=== PATIENT | female | born 1980 | race Caucasian/White ===

== ENCOUNTER → 2018-02-02 13:16 | Emergency (ER) | payer BC, OTHER ==
[~2018-02-02 13:16] MED LIST: Iohexol 300* (CONTRAST) 10 ML SDV IV ONE; Morphine VIAL* 4 MG/ML VIAL (1 ml vial) IV ONE; NS 0.9% 1000 ML* 1,000 ML IV ONE; Ondansetron INJ* 2 MG/ML VIAL IV ONE; Pantoprazole IV* 40 MG IV ONE
[2018-02-02] MEDS: Morphine VIAL* 4 MG/ML VIAL (1 ml vial) IV ONE ×2 (16:25→16:50)
[2018-02-02 16:30] LABS: ABS Basophils 0 10^3/ul (0-0.2); ABS Eosinophils 0.1 10^3/ul (0-0.6); ABS Lymphocytes 0.5 10^3/ul (1.0-4.8); ABS Monocytes 0.7 10^3/ul (0-0.8); ABS Neutrophils 10.1 10^3/ul (1.5-7.7); ABS Nucleated RBC 0 10^3/ul; Eosinophil % 0.5 % (0-6); Hematocrit 43 % (35-47); Hemoglobin 14.5 g/dl (12.0-16.0); Lymphocyte % 4.2 % (25-47); Mean Corpuscular HGB Conc 34 g/dl (31-36); Mean Corpuscular Hemoglobin 31 pg (27-31); Mean Corpuscular Volume 91 fL (80-97); Mean Platelet Volume 7.6 um3 (7.4-10.4); Nucleated Red Blood Cells % 0; Platelet Count 249 10^3/ul (150-450); Red Blood Count 4.73 10^6/ul (4.0-5.4); Red Cell Distribution Width 13 % (10.5-15); White Blood Count 11.3 10^3/ul (3.5-10.8)
[2018-02-02 16:55] LABS: EGFR Non-African American 87.4 (>60)
--- NOTE | 2018-02-02 17:21 | RAD ---
Indication: Nausea, abdominal pain. Comparison: September 04, 2017 Technique: Upright PA chest 1710 hours Report: Clear lungs and pleural spaces. Negative for pneumothorax. Cardiac event monitor at the LEFT chest. The heart, pulmonary vasculature, and mediastinal contours are unremarkable. Negative for free air beneath the diaphragm. Gallbladder fossa level surgical clips. Unremarkable osseous structures and soft tissue contours. IMPRESSION: No evidence for acute intrathoracic disease.
--- NOTE | 2018-02-02 17:26 | RAD ---
Indication: Abdominal pain, nausea. Severe gastroparesis. Comparison: Chest radiograph the same date. Technique: Supine and upright views of the abdomen. Report: No radiographic evidence for free air. Significant gastric distention and gastric air-fluid level. Resulting downward displacement of the transverse colon. Negative for dilated small or large bowel loops. Moderate volume of formed stool at the sigmoid colon and rectum. Surgical clips at the gallbladder fossa. IUD at the midline pelvis. No suspicious calcifications. Unremarkable soft tissue contours. IMPRESSION: Corresponding with history of severe gastroparesis there is significant gastric distention.
--- NOTE | 2018-02-02 18:26 | RAD ---
INDICATION: Abdominal pain and nausea. Gastroparesis. COMPARISON: Abdomen radiograph of the same date. TECHNIQUE: Multidetector CT images were obtained from the lung bases to the ischial tuberosities with 72 mL Omnipaque 300 IV and oral contrast. Multiplanar reformation. REPORT: Unremarkable visualized inferior thorax. Post cholecystectomy. Upper normal intrarenal extrahepatic bile ducts as is typically seen post cholecystectomy. No suspicious finding along the course of the common bile duct. Upper normal 18 cm cephalocaudal liver. No suspicious focal hepatic lesions. Unremarkable pancreas and spleen. Moderate gastric distention with food stuff and enteric contrast. No suggestion of gastric wall thickening or focal gastric lesion. No CT abnormality of the small bowel loops. While the appendix is not discretely visualized, there is no inflammatory change in the right lower quadrant or region of the tip of the cecum to suggest presence of an acute inflammatory process. Physiologic small volume of free pelvic fluid. Negative for free air. Negative for hernias. Normal adrenal glands. Unremarkable kidneys with symmetric nephrograms and pyelograms. Unremarkable nondilated ureters and bladder. Anteverted uterus with IUD in place. Unremarkable adnexal regions. Negative for lymphadenopathy. Normal diameter abdominal aorta and iliac arteries. Physiologic distention of the IVC. Negative for suspicious osseous lesions. IMPRESSION: 1. Decreased magnitude of gastric distention compared with the abdomen radiograph the same date. Negative for bowel obstruction. 2. Post cholecystectomy likely accounting for top normal size of the intra and extrahepatic bile ducts. 3. While the appendix is not discretely visualized, there is no inflammatory change in the right lower quadrant or region of the tip of the cecum to suggest presence of an acute inflammatory process. 4. Physiologic small volume of free fluid at the pelvis. 5. Negative for lymphadenopathy.
[2018-02-02 20:30] VITALS: BP 93/55
--- NOTE | 2018-02-03 12:01 | ED ---
Mayda Javier Edward, scribed for Tres Jonas MD on 02/02/18 at 1605 . Abdominal Pain/Female - HPI Summary HPI Summary: 37 y/o female presents to the ED c/o sudden onset, severe nausea and ABD pain at 04:00 this morning, waking the pt up at night. Pain located mostly in the epigastric region and moves around the ABD. Pain aggravated with movement, nausea aggravated with food. Pt has had intermittent ABD pain for the past couple of weeks. PMHx gastroperesis, endometriosis. Sx ovarian cyst removal, gallbladder removal, . Last BM last night at around 05:00 (regular). - History of Current Complaint Chief Complaint: EDAbdPain Stated Complaint: NAUSEA,ABD PAIN Time Seen by Provider: 02/02/18 15:47 Hx Obtained From: Patient Onset/Duration: Sudden Onset Timing: Constant Pain Intensity: 6 Location: Suprapubic Radiates: Yes Radiates to: Other - moves around ABD Aggravating Factor(s): Food, Movement Alleviating Factor(s): Nothing Associated Signs and Symptoms: Positive: Nausea Allergies/Adverse Reactions: Allergies Allergy/AdvReac Type Severity Reaction Status Date / Time ceftazidime Allergy Severe Anaphylatic Verified 02/02/18 13:26 Shock ephedrine Allergy Severe Palpitation Verified 02/02/18 13:26 s metoclopramide [From Reglan] Allergy Severe Rash Verified 02/02/18 13:26 prochlorperazine Allergy Severe Anxiety Verified 02/02/18 13:26 [From Compazine] pseudoephedrine Allergy Severe Palpitation Verified 02/02/18 13:26 s Sulfa (Sulfonamide Allergy Severe Numbness Verified 02/02/18 13:26 Antibiotics) And Tingling tramadol [From Ultram] Allergy Severe Anxiety Verified 02/02/18 13:26 PMH/Surg Hx/FS Hx/Imm Hx Previously Healthy: No Cardiovascular History: Reports: Other Cardiovascular Problems/Disorders - VENTRICULAR TACHYCARDIA. LOOP RECORDER. GI History: Reports: Other GI Disorders - Gastroparesis, endometriosis Musculoskeletal History: Reports: Hx Scoliosis Neurological History: Reports: Hx Headaches - MIGRAINS, Other Neuro Impairments/ Disorders - ANKYLOSIS SPOND - Surgical History Surgery Procedure, Year, and Place: Ovarian cyst removal, gallbladder removal, C -section Infectious Disease History: No Infectious Disease History: Denies: Traveled Outside the [place] in Last 30 Days - Family History Known Family History: Positive: Unknown - Social History Occupation: Unemployed Lives: With Family Review of Systems Constitutional: Negative Eyes: Negative ENT: Negative Cardiovascular: Negative Respiratory: Negative Positive: Abdominal Pain, Nausea Genitourinary: Negative Musculoskeletal: Negative Skin: Negative Neurological: Negative Psychological: Normal All Other Systems Reviewed And Are Negative: Yes Physical Exam - Summary Physical Exam Summary: GENERAL: ~Patient is a well developed and nourished F who is lying comfortable in the stretcher. ~Patient is not in any acute respiratory distress. HEAD AND FACE: Normocephalic EYES: PERRLA, EOMI x 2. EARS: Hearing grossly intact. MOUTH: Oropharynx within normal limits. NECK: Supple, trachea is midline, no adenopathy, no JVD, no carotid bruit. CHEST: Symmetric, no tenderness at palpation LUNGS: Clear to auscultation bilaterally. No wheezing or crackles. CVS: Regular rate and rhythm, S1 and S2 present, no murmurs or gallops appreciated. ABDOMEN: Soft, tender @ epigastric region. No rebound, no guarding. Bowel sounds are normal. No abdominal abnormal pulsations. EXTREMITIES: Full ROM in all major joints, no edema, no cyanosis or clubbing. NEURO: Alert and oriented x 3. No acute neurological deficits. Speech is normal and follows commands. SKIN: Dry and warm Triage Information Reviewed: Yes Vital Signs On Initial Exam: Initial Vitals Temp Pulse Resp BP Pulse Ox 99.3 F 103 16 104/69 98 02/02/18 13:20 02/02/18 13:20 02/02/18 13:20 02/02/18 13:20 02/02/18 13:20 Vital Signs Reviewed: Yes Diagnostics - Vital Signs Vital Signs Temp Pulse Resp BP Pulse Ox 02/02/18 13:20 99.3 F 103 16 104/69 98 - Laboratory Lab Results: Lab Results 02/02/18 02/02/18 02/02/18 Range/Units 16:16 16:16 16:16 WBC 11.3 H (3.5-10.8) 10^3/ul RBC 4.73 (4.0-5.4) 10^6/ul Hgb 14.5 (12.0-16.0) g/dl Hct 43 (35-47) % MCV 91 (80-97) fL MCH 31 (27-31) pg MCHC 34 (31-36) g/dl RDW 13 (10.5-15) % Plt Count 249 (150-450) 10^3/ul MPV 7.6 (7.4-10.4) um3 Neut % (Auto) 89.2 H (38-83) % Lymph % (Auto) 4.2 L (25-47) % White % (Auto) 6.0 (0-7) % Eos % (Auto) 0.5 (0-6) % Baso % (Auto) 0.1 (0-2) % Absolute Neuts (auto) 10.1 H (1.5-7.7) 10^3/ul Absolute Lymphs (auto) 0.5 L (1.0-4.8) 10^3/ul Absolute Monos (auto) 0.7 (0-0.8) 10^3/ul Absolute Eos (auto) 0.1 (0-0.6) 10^3/ul Absolute Basos (auto) 0 (0-0.2) 10^3/ul Absolute Nucleated RBC 0 10^3/ul Nucleated RBC % 0 Sodium 134 L (139-145) mmol/L Potassium 3.9 (3.5-5.0) mmol/L Chloride 104 (101-111) mmol/L Carbon Dioxide 21 L (22-32) mmol/L Anion Gap 9 (2-11) mmol/L BUN 13 (6-24) mg/dL Creatinine 0.74 (0.51-0.95) mg/dL Est GFR ( Amer) 112.4 (>60) Est GFR (Non-Af Amer) 87.4 (>60) BUN/Creatinine Ratio 17.6 (8-20) Glucose 94 (70-100) mg/dL Lactic Acid 0.7 (0.5-2.0) mmol/L Calcium 9.1 (8.6-10.3) mg/dL Magnesium 2.1 (1.9-2.7) mg/dL Total Bilirubin 0.90 (0.2-1.0) mg/dL AST 21 (13-39) U/L ALT 22 (7-52) U/L Alkaline Phosphatase 47 (34-104) U/L Total Protein 7.8 (6.4-8.9) g/dL Albumin 4.5 (3.2-5.2) g/dL Globulin 3.3 (2-4) g/dL Albumin/Globulin Ratio 1.4 (1-3) Lipase 17 (11.0-82.0) U/L Beta HCG, Quant < 0.60 mIU/mL Result Diagrams: 02/02/18 16:16 02/02/18 16:16 Lab Statement: Any lab studies that have been ordered have been reviewed, and results considered in the medical decision making process. - Radiology CXR Xray Interpretation: No Acute Changes - No evidence for acute intrathoracic disease Radiology Interpretation Completed By: Radiologist ABD XR Xray Interpretation: No Acute Changes - Corresponding with history of severe gastroparesis there is significant gastric distention. Radiology Interpretation Completed By: Radiologist - CT ABD/PEL CT CT Interpretation: No Acute Changes - 1. Decreased magnitude of gastric distention compared with the abdomen radiograph the same date. Negative for bowel obstruction. 2. Post cholecystectomy likely accounting for top normal size of the intra and extrahepatic bile ducts. 3. While the appendix is not discretely visualized, there is no inflammatory change in the right lower quadrant or region of the tip of the cecum to suggest presence of an acute inflammatory process. 4. Physiologic small volume of free fluid at the pelvis. 5. Negative for lymphadenopathy. CT Interpretation Completed By: Radiologist Re-Evaluation - Re-Evaluation 1 Re-Evaluation Time: 16:41 Change: Worse Comment: Pt in severe ABD pain immediately after the pt drank contrast. Pt c/o L shoulder pain 2 Re-Evaluation Time: 18:36 Comment: discuss results, plan of care Abdominal Pain Fem Course/Dx - Course Course Of Treatment: 37 y/o female history gastroparesis and erosive gastritis. Presents to ED with worsening ABd pain. Workup remarkable for Mild leukocytosis white count 11.3. CT shows much improvement of distended stomach seen in previous studies. CXR normal. PT will be given protonix and sent home. Instructed to f/u with GI. - Diagnoses Provider Diagnoses: Epigastric pain Discharge - Sign-Out/Discharge Documenting (check all that apply): Discharge/Admit/Transfer - Discharge Plan Condition: Stable Disposition: HOME Prescriptions: Pantoprazole TAB (NF) [Protonix TAB (NF)] 20 mg PO DAILY 30 Days #30 tab Patient Education Materials: Gastritis (ED), Gastroesophageal Reflux Disease ( ED), Epigastric Pain (ED) Referrals: Endy Johnston MD [Medical Doctor] - 4 Days (PLEASE F/U IN 3-5 DAYS) Additional Instructions: RETURN FOR CHANGING/WORSENING SYMPTOMS - Billing Disposition and Condition Condition: STABLE Disposition: HOME The documentation as recorded by the aMyda lozano Edward accurately reflects the service I personally performed and the decisions made by , Tres Jonas MD.
== END | disposition home or self-care (01) ==
LOC: ED 13:16
DX: R10.13 Epigastric pain (principal); I47.2 Ventricular tachycardia; K31.89 Other diseases of stomach and duodenum
CPT/HCPCS: 36415; 71045; 74019; 74177; 80053; 83605; 83690; 83735; 84702; 85025; 96360; 96374; 96375; 99283; J2270; J2405; Q9967

== ENCOUNTER 2018-04-25 12:42 | Emergency (ER) | payer BC ==
--- OUTSIDE RECORDS SUMMARY | 2018-04-25 12:48 | XMS REPORT ---
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 PayID: [id number] [place] [address] Medigap Part B Effective: Policy Number: [employer] Zenaida Zavala 10/07/2017 [id number] [facility] Name: [employer] 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 Cigarette Use Never Smoked Cigarettes ETOH Use Denies alcohol use Recreational Drug Use Denies Drug Use Smoking Patient has never smoked Enjoy Exercising Enjoys exercising Allergies, Adverse Reactions, Alerts Date Description Reaction Status Severity Comments 08/03/2016 Sulfa numbness and tingling active 08/03/2016 Ultram withdrawl sx active 08/03/2016 Compazine painic attack active 08/03/2016 Reglan rash active 08/03/2016 Ephedrine heart palpitations active 08/03/2016 Sudafed heart palpitation active 08/03/2016 Ceftazidime rash and itchy throat active 01/11/2017 Adhesives active Medications Medication Date Status Form Strength Qnty SIG Indications Ordering Provider Fluticasone 03/25/ Active Suspension 50mcg/Act 16gm 2 sprays J01.90 Julio Propionate 2017 into each [place] nostril III, once daily [employer] Azithromycin 03/25/ Active Tablets 250mg 6tabs take 2 tab J01.90 Julio 2018 by mouth on [place] day 1 III, followed by [employer] 1 tab by mouth daily for 4 additional days Benadryl 02/03/ Active take before Susan 2018 infusion MICHAEL Minor Prednisone 02/03/ Active take before [facility] 2017 infusion MICHAEL Minor Amitriptyline 07/18/ Active Tablets 10mg 30tab 1 tab by G43.101 Alen HCL 2017 s mouth every [place] night , Ondansetron 11/16/ Active Tablets 4mg 30tab dissolve 1 Manuela 2016 Dispers s tab by traci Cortez three [employer]-C times a day as needed nausea Mirena (52 MG) 08/03/ Active IUD 20mcg/24H inserted Manuela 2015 R 09/20 JOSEFINA Cortez-C Remicade / Active Infusions Every 6 Unknown 0000 weeks Tylenol 8 Hour / Active Tablets ER 650mg 1 by mouth Unknown Arthritis Pain 0000 as needed Ketorolac / Active Tablets 10mg 20tab take one Alen Tromethamine 0000 s tablet by [place] mouth every , 4 to 6 hours; no more than four tablets per day Azithromycin 12/16/ Hx Tablets 250mg 6tabs 2 tabs J01.90 [facility] 2017 - today. 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 Benzonatate 08/06/ Hx Capsules 100mg 60cap 1-2 R05 Julio 2016 - s capsules by [place] 02/03/ mouth every III, 2018 8 hours as [employer]-C needed for cough. Rizatriptan 07/18/ Hx Tablets 5mg 14tab 1 tab by G43.101 Alen Benzoate 2016 - s mouth as [place] 02/03/ needed at , 2018 onset of migraine symptoms. can take another 2 hours later if needed. Azithromycin 03/12/ Hx Tablets 250mg 6tabs take 2 tab J06.9 Julio 2017 - by mouth on [place] 07/24/ day 1 III, 2016 followed by [employer]-C 1 tab by mouth daily for 4 additional days Lexapro 02/15/ Hx Tablets 10mg 30tab 1/2 tablet F41.9 Manuela 2017 - s by mouth x Dana, 02/20/ days then [employer]-C 2017 increase to 1 tab po daily Azithromycin 09/28/ Hx Tablets 250mg 6tabs take 2 J01.90 Alen 2016 - tablets by [place] 11/16/ mouth MD raina 2017 time then take one daily for 4 days. Wait until patient calls to fill. Flonase Allergy 09/28/ Hx Suspension 50mcg/Act 1unit 1 puff J01.90 Alen Relief 2016 - s intranasal [place] 03/12/ puff MD jolene 2017 every morning in each nostril Estradiol 08/20/ Hx Tablets 2mg 90tab 1 tab po qd Manuela 2015 - s Dana, 02/03/ [employer] 2017 Estradiol 14/ Hx Tablets 1mg 90tab 1 tab po qd Manuela 2015 - s Dana, 02/03/ [employer] 2017 Clindamycin 08/20/ Hx Gel 1% 60uni apply a N64.9 Manuela Phosphate 2016 - ts thin film Dana, 01/11/ to affected [facility] 2017 area once or twice daily Estradiol / Hx Tablets 3mg 30tab 1 by mouth Unknown 0000 - s every day 2015 Prednisone 00/ Hx Tablets 10mg Unknown 0000 - 2017 Medications Administered in Office Medication Date Status Form Strength Qnty SIG Indications Ordering Provider Injection Administered Injection Alen KetorolHerminio Flores MD Per 15 MG (Toradol) Immunizations CPT Code Status Date Vaccine Lot # [id number] Given 09/04/2017 Influenza Virus Vaccine, Quadrivalent, 3 Yr > [id number] Quad, Preserv Free [id number] Given 10/12/2016 Influenza Virus Vaccine, Quadrivalent, 3 Yr > [id number] Quad, Preserv Free Vital Signs Date Vital Result Comment 04/10/2018 Weight 123.00 lb Weight in kg's 55.793 BP Systolic 98 mmHg BP Diastolic 68 mmHg Heart Rate 81 /min Body Temperature 99.5 F Respiratory Rate 18 /min O2 % BldC Oximetry 98 % 03/25/2018 Weight 123.00 lb Weight in kg's 55.793 BP Systolic 114 mmHg BP Diastolic 70 mmHg Heart Rate 78 /min Body Temperature 99.0 F Respiratory Rate 18 /min O2 % BldC Oximetry 99 % 02/03/2018 Weight 122.00 lb Weight in kg's 55.339 BP Systolic 102 mmHg BP Diastolic 58 mmHg Heart Rate 87 /min Body Temperature 97.1 F Respiratory Rate 16 /min Height 67 inches 5'7" BMI (Body Mass Index) 19.1 kg/m2 O2 % BldC Oximetry 98 % 12/16/2017 Weight 125.00 lb Weight in kg's 56.700 BP Systolic 104 mmHg BP Diastolic 68 mmHg Heart Rate 84 /min Body Temperature 98.1 F Respiratory Rate 16 /min O2 % BldC Oximetry 99 % 12/12/2017 Weight 121.00 lb Weight in kg's 54.886 BP Systolic 102 mmHg BP Diastolic 70 mmHg Heart Rate 88 /min Body Temperature 98.9 F Respiratory Rate 16 /min O2 % BldC Oximetry 98 % 09/04/2017 Weight 122.00 lb Weight in kg's 55.339 BP Systolic 90 mmHg BP Diastolic 60 mmHg Heart Rate 88 /min Body Temperature 97.7 F Respiratory Rate 14 /min O2 % BldC Oximetry 98 % 08/06/2017 Weight 125.00 lb Weight in kg's 56.700 BP Systolic 90 mmHg BP Diastolic 60 mmHg Heart Rate 92 /min Body Temperature 98.0 F Respiratory Rate 20 /min O2 % BldC Oximetry 98 % 07/24/2017 Weight 120.00 lb Weight in kg's 54.432 BP Systolic 90 mmHg BP Diastolic 60 mmHg Heart Rate 80 /min Body Temperature 98.7 F Respiratory Rate 16 /min 07/18/2017 Weight 124.00 lb Weight in kg's 56.246 BP Systolic 110 mmHg BP Diastolic 70 mmHg Heart Rate 68 /min Body Temperature 98.5 F 03/12/2017 Weight 117.00 lb Weight in kg's 53.071 BP Systolic 110 mmHg BP Diastolic 70 mmHg Heart Rate 92 /min Body Temperature 98.5 F Respiratory Rate 20 /min O2 % BldC Oximetry 99 % 02/15/2017 Weight 121.00 lb Weight in kg's 54.886 BP Systolic 94 mmHg BP Diastolic 56 mmHg Heart Rate 74 /min Body Temperature 98.8 F Respiratory Rate 14 /min O2 % BldC Oximetry 99 % 01/11/2017 Weight 120.00 lb Weight in kg's 54.432 BP Systolic 92 mmHg BP Diastolic 58 mmHg Heart Rate 89 /min Body Temperature 97.0 F Respiratory Rate 16 /min O2 % BldC Oximetry 98 % 11/16/2016 Weight 123.00 lb Weight in kg's 55.793 BP Systolic 90 mmHg BP Diastolic 60 mmHg Heart Rate 56 /min Body Temperature 98.9 F Respiratory Rate 12 /min 10/19/2016 Weight 122.00 lb Weight in kg's 55.339 BP Systolic 100 mmHg BP Diastolic 64 mmHg Heart Rate 84 /min Body Temperature 98.5 F Respiratory Rate 12 /min 09/28/2016 Weight 123.00 lb Weight in kg's 55.793 BP Systolic 100 mmHg BP Diastolic 69 mmHg Heart Rate 114 /min Body Temperature 99.3 F O2 % BldC Oximetry 98 % 08/20/2016 Weight 121.00 lb Weight in kg's 54.886 BP Systolic 94 mmHg BP Diastolic 58 mmHg Heart Rate 80 /min Body Temperature 98.8 F Respiratory Rate 12 /min 08/03/2016 Weight 121.00 lb Weight in kg's 54.886 BP Systolic 90 mmHg BP Diastolic 60 mmHg Heart Rate 72 /min Body Temperature 98.1 F Respiratory Rate 12 /min Height 66.5 inches 5'6.50" BMI (Body Mass Index) 19.2 kg/m2 Results Test Date Test Result H/L Range Note CBC Auto Diff 02/02/2018 White Blood Count 11.3 10^3/uL High 3.5-10.8 Red Blood Count 4.73 10^6/uL 4.0-5.4 Hemoglobin 14.5 g/dL 12.0-16.0 Hematocrit 43 % 35-47 Mean Corpuscular Volume 91 fL 80-97 Mean Corpuscular Hemoglobin 31 pg 27-31 Mean Corpuscular HGB Conc 34 g/dL 31-36 Red Cell Distribution Width 13 % 10.5-15 Platelet Count 249 10^3/uL 150-450 Mean Platelet Volume 7.6 um3 7.4-10.4 Abs Neutrophils 10.1 10^3/uL High 1.5-7.7 Abs Lymphocytes 0.5 10^3/uL Low 1.0-4.8 Abs Monocytes 0.7 10^3/uL 0-0.8 Abs Eosinophils 0.1 10^3/uL 0-0.6 Abs Basophils 0 10^3/uL 0-0.2 Abs Nucleated RBC 0 10^3/uL Granulocyte % 89.2 % High 38-83 Lymphocyte % 4.2 % Low 25-47 Monocyte % 6.0 % 0-7 Eosinophil % 0.5 % 0-6 Basophil % 0.1 % 0-2 Nucleated Red Blood Cells % 0 Laboratory test finding 02/02/2018 Lactic Acid 0.7 mmol/L 0.5-2.0 1 HCG < 0.60 mIU/mL 2 Laboratory test finding 02/02/2018 Magnesium 2.1 mg/dL 1.9-2.7 Lipase 17 U/L 11.0-82.0 Comp Metabolic Panel 02/02/2018 Sodium 134 mmol/L Low 139-145 Potassium 3.9 mmol/L 3.5-5.0 Chloride 104 mmol/L 101-111 Co2 Carbon Dioxide 21 mmol/L Low 22-32 Anion Gap 9 mmol/L 2-11 Glucose 94 mg/dL 70-100 Blood Urea Nitrogen 13 mg/dL 6-24 Creatinine 0.74 mg/dL 0.51-0.95 BUN/Creatinine Ratio 17.6 8-20 Calcium 9.1 mg/dL 8.6-10.3 Total Protein 7.8 g/dL 6.4-8.9 Albumin 4.5 g/dL 3.2-5.2 Globulin 3.3 g/dL 2-4 Albumin/Globulin Ratio 1.4 1-3 Total Bilirubin 0.90 mg/dL 0.2-1.0 Alkaline Phosphatase 47 U/L 34-104 Alt 22 U/L 7-52 Ast 21 U/L 13-39 Egfr Non- 87.4 >60 Egfr 112.4 >60 3 Laboratory test finding 12/12/2017 Strep PCR neg CBC Auto Diff 11/16/2016 White Blood Count 10.3 10^3/uL 3.5-10.8 Red Blood Count 4.58 10^6/uL 4.0-5.4 Hemoglobin 13.7 g/dL 12.0-16.0 Hematocrit 41 % 35-47 Mean Corpuscular Volume 90 fL 80-97 Mean Corpuscular Hemoglobin 30 pg 27-31 Mean Corpuscular HGB Conc 33 g/dL 31-36 Red Cell Distribution Width 13 % 10.5-15 Platelet Count 310 10^3/uL 150-450 Mean Platelet Volume 9 um3 7.4-10.4 Abs Neutrophils 6.3 10^3/uL 1.5-7.7 Abs Lymphocytes 3.2 10^3/uL 1.0-4.8 Abs Monocytes 0.7 10^3/uL 0-0.8 Abs Eosinophils 0.1 10^3/uL 0-0.6 Abs Basophils 0.1 10^3/uL 0-0.2 Abs Nucleated RBC 0 10^3/uL Granulocyte % 60.9 % 38-83 Lymphocyte % 30.7 % 25-47 Monocyte % 7.2 % 1-9 Eosinophil % 0.6 % 0-6 Basophil % 0.6 % 0-2 Nucleated Red Blood Cells % 0 Laboratory test finding 11/16/2016 Magnesium 2.2 mg/dL 1.9-2.7 4 Comp Metabolic Panel 11/16/2016 Sodium 135 mmol/L 133-145 Potassium 4.3 mmol/L 3.5-5.0 Chloride 102 mmol/L 101-111 Co2 Carbon Dioxide 24 mmol/L 22-32 Anion Gap 9 mmol/L 2-11 Glucose 86 mg/dL 70-100 Blood Urea Nitrogen 11 mg/dL 6-24 Creatinine 0.73 mg/dL 0.51-0.95 BUN/Creatinine Ratio 15.1 8-20 Calcium 9.6 mg/dL 8.6-10.3 Total Protein 7.8 g/dL 6.4-8.9 Albumin 4.7 g/dL 3.2-5.2 Globulin 3.1 g/dL 2-4 Albumin/Globulin Ratio 1.5 1-3 Total Bilirubin 0.60 mg/dL 0.2-1.0 Alkaline Phosphatase 53 U/L 34-104 Alt 71 U/L High 7-52 Ast 37 U/L 13-39 Egfr Non- 89.2 >60 Egfr 114.7 >60 5 Laboratory test finding 10/19/2016 HCG DIP Test NEG Neg Urine DIP 10/19/2016 Leukocytes NEG Neg Urine Nitrites NEG Neg Urobilinogen NORM Norm Total Protein, Urine TRACE Neg Urine pH 8 High 5-6 Urine Blood NEG Neg Specific [place] 1.01 1.01-1.02 Urine Ketones NEG Neg Urine Bilirubin NEG Neg Urine Glucose NORM Norm Laboratory test finding 08/20/2016 TSH (Thyroid Stim Horm) 0.84 mcIU/mL 0.34-5.60 6 Vitamin B12 335 pg/mL 180-914 7 Magnesium 2.2 mg/dL 1.9-2.7 8 Comp Metabolic Panel 08/20/2016 Sodium 138 mmol/L 133-145 Potassium 4.1 mmol/L 3.5-5.0 Chloride 105 mmol/L 101-111 Co2 Carbon Dioxide 27 mmol/L 22-32 Anion Gap 6 mmol/L 2-11 Glucose 77 mg/dL 70-100 Blood Urea Nitrogen 9 mg/dL 6-24 Creatinine 0.80 mg/dL 0.51-0.95 BUN/Creatinine Ratio 11.3 8-20 Calcium 9.2 mg/dL 8.6-10.3 Total Protein 7.2 g/dL 6.4-8.9 Albumin 4.3 g/dL 3.2-5.2 Globulin 2.9 g/dL 2-4 Albumin/Globulin Ratio 1.5 1-3 Total Bilirubin 0.90 mg/dL 0.2-1.0 Alkaline Phosphatase 42 U/L 34-104 Alt 20 U/L 7-52 Ast 20 U/L 13-39 Egfr Non- 80.7 >60 Egfr 103.8 >60 9 CBC Auto Diff 08/20/2016 White Blood Count 5.8 10^3/uL 3.5-10.8 Red Blood Count 4.50 10^6/uL 4.0-5.4 Hemoglobin 13.6 g/dL 12.0-16.0 Hematocrit 41 % 35-47 Mean Corpuscular Volume 91 fL 80-97 Mean Corpuscular Hemoglobin 30 pg 27-31 Mean Corpuscular HGB Conc 33 g/dL 31-36 Red Cell Distribution Width 13 % 10.5-15 Platelet Count 312 10^3/uL 150-450 Mean Platelet Volume 9 um3 7.4-10.4 Abs Neutrophils 3.3 10^3/uL 1.5-7.7 Abs Lymphocytes 1.9 10^3/uL 1.0-4.8 Abs Monocytes 0.4 10^3/uL 0-0.8 Abs Eosinophils 0.1 10^3/uL 0-0.6 Abs Basophils 0.1 10^3/uL 0-0.2 Abs Nucleated RBC 0 10^3/uL Granulocyte % 57.5 % 38-83 Lymphocyte % 33.1 % 25-47 Monocyte % 6.5 % 1-9 Eosinophil % 1.8 % 0-6 Basophil % 1.1 % 0-2 Nucleated Red Blood Cells % 0.1 1 [place] Severe Sepsis and Septic Shock Management Bundle Measure requires all lactic acids initially measuring >2.0 mmol/L be repeated. 2 <5.0 Negative 5.0 - 25.0 Indeterminate (Repeat testing recommended after 72 hours) >25.0 Positive Perimenopausal women can display HCG levels of up to 20 mIU/mL 3 Because ethnic data is not always readily available, this report includes an eGFR for both -Americans and non- Americans. The National Kidney Disease Education Program (NKDEP) does not endorse the use of the MDRD equation for patients that are not between the ages of 18 and 70, are , have extremes of body size, muscle mass, or nutritional status, or are non- or non-. According to the National Kidney Foundation, irrespective of diagnosis, the stage of the disease is based on the level of kidney function: Stage Description GFR(mL/min/1.73 m(2)) 1 Kidney damage with normal or decreased GFR 90 2 Kidney damage with mild decrease in GFR 60-89 3 Moderate decrease in GFR 30-59 4 Severe decrease in GFR 15-29 5 Kidney failure <15 (or dialysis) 4 [id number] 5 Because ethnic data is not always readily available, this report includes an eGFR for both -Americans and non- Americans. The National Kidney Disease Education Program (NKDEP) does not endorse the use of the MDRD equation for patients that are not between the ages of 18 and 70, are , have extremes of body size, muscle mass, or nutritional status, or are non- or non-. According to the National Kidney Foundation, irrespective of diagnosis, the stage of the disease is based on the level of kidney function: Stage Description GFR(mL/min/1.73 m(2)) 1 Kidney damage with normal or decreased GFR 90 2 Kidney damage with mild decrease in GFR 60-89 3 Moderate decrease in GFR 30-59 4 Severe decrease in GFR 15-29 5 Kidney failure <15 (or dialysis) 6 [id number] Normal Range 180 to 914 Indeterminate Range 145 to 180 Deficient Range <145 8 [id number] 9 Because ethnic data is not always readily available, this report includes an eGFR for both -Americans and non- Americans. The National Kidney Disease Education Program (NKDEP) does not endorse the use of the MDRD equation for patients that are not between the ages of 18 and 70, are , have extremes of body size, muscle mass, or nutritional status, or are non- or non-. According to the National Kidney Foundation, irrespective of diagnosis, the stage of the disease is based on the level of kidney function: Stage Description GFR(mL/min/1.73 m(2)) 1 Kidney damage with normal or decreased GFR 90 2 Kidney damage with mild decrease in GFR 60-89 3 Moderate decrease in GFR 30-59 4 Severe decrease in GFR 15-29 5 Kidney failure <15 (or dialysis) Procedures Date CPT Code Description Status 07/18/2017 05878 Therapeutic,Prophylactic,Or Diagnostic Inj,SC/Im Completed Specify Drug 10/07/2014 Mammogram Completed Encounters Type Date Location Provider CPT E/M Dx Office Visit 04/10/2018 4:00p [place] [address] K40.91 Office Visit 03/25/2018 2:45p [facility] [place], [address] J01.90 [employer]-C Office Visit 02/03/2018 2:30p [place] [address] R11.0 Office Visit 12/16/2017 2:45p [place] [address] J01.90 Office Visit 12/12/2017 10:30a [place] [address] J06.9 Office Visit 09/04/2017 5:15p [place] [address] R05 Z23 Office Visit 08/06/2017 3:15p Main Office [place]C [address] R05 Office Visit 07/24/2017 4:00p [place] [address] J04.0 Office Visit 07/18/2017 4:00p [place] [address] G43.101 Office Visit 03/12/2017 4:15p Main Office Julio Reagan III, AIR MOTOR REPAIRER-C 92052 J06.9 Office Visit 02/15/2017 9:45a Main Office TYSON WrightP-C 04298 F41.9 Office Visit 01/11/2017 3:15p Main Office JOSEFINA Wright-C 29074 R00.2 Office Visit 11/16/2016 3:15p Main Office CALVIN Wright 60118 K40.91 R00.2 Office Visit 10/19/2016 2:00p [place] [address] R10.2 Office Visit 09/28/2016 11:00a [place] [address] J01.90 Office Visit 08/20/2016 10:00a Main Office CALVIN Wright 26479 R55 N64.9 Office Visit 08/03/2016 11:00a Main Office CALVIN Wright 69591 R55 Plan of Care 04/10/2018 - Alen Duran MDK40.91 Unilateral inguinal hernia, w/o obst or gangrene, recurrentNew Xrays:Ultrasound Abdomen, LimitedComments:Possible recurrence of hernia.If pain is worsening workup will have to be accelerated with ED workup, but if stays the same can wait to get US appointment. D/w patient.Follow up:Ultrasound
[2018-04-25 13:19] VITALS: BP 104/70
--- NOTE | 2018-04-25 13:47 | UC ---
Skin Complaint HPI - HPI Summary HPI Summary: DEVELOPED PAINFUL BLISTERS TO ROOF OF MOUTH THIS MORNING. 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 LAST OUTBREAK OVER 2 YEARS AGO. - History of Current Complaint Chief Complaint: UCGeneralIllness Time Seen by Provider: 04/25/18 13:34 Stated Complaint: BLISTERS ON THE ROOF OF MOUTH Hx Obtained From: Patient Hx Last Menstrual Period: iud Onset/Duration: Sudden Onset, Lasting Hours, Still Present Timing: Constant Onset Severity: Moderate Current Severity: Moderate Pain Intensity: 2 Pain Scale Used: 0-10 Numeric Character: Pain Aggravating Factor(s): Touch Alleviating Factor(s): Nothing Associated Signs & Symptoms: Positive: Rash, Tenderness. Negative: Nausea, Fever, Drainage - Allergy/Home Medications Allergies/Adverse Reactions: Allergies Allergy/AdvReac Type Severity Reaction Status Date / Time ceftazidime Allergy Severe Anaphylatic Verified 04/25/18 13:19 Shock ephedrine Allergy Severe Palpitation Verified 04/25/18 13:19 s metoclopramide [From Reglan] Allergy Severe Rash Verified 04/25/18 13:19 prochlorperazine Allergy Severe Anxiety Verified 04/25/18 13:19 [From Compazine] pseudoephedrine Allergy Severe Palpitation Verified 04/25/18 13:19 s Sulfa (Sulfonamide Allergy Severe Numbness Verified 04/25/18 13:19 Antibiotics) And Tingling tramadol [From Ultra] Allergy Severe Anxiety Verified 04/25/18 13:19 Home Medications: Home Medications Remicade* 04/25/18 [History] Review of Systems Constitutional: Negative ENT: Other - 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 Respiratory: Negative Cardiovascular: Negative Gastrointestinal: Negative All Other Systems Reviewed And Are Negative: Yes PMH/Surg Hx/FS Hx/Imm Hx Previously Healthy: Yes - Surgical History Surgical History: Yes Surgery Procedure, Year, and Place: Ovarian cyst removal, gallbladder removal, C -section endo ,hernia - Family History Known Family History: Negative: Hypertension - Social History Alcohol Use: Rare Substance Use Type: None Smoking Status (MU): Never Smoked Tobacco Physical Exam Triage Information Reviewed: Yes Appearance: Well-Appearing, No Pain Distress, Well-Nourished Vital Signs: Initial Vital Signs Temp 98 F 04/25/18 13:14 Pulse 73 04/25/18 13:14 Resp 16 04/25/18 13:14 BP 104/70 04/25/18 13:14 Pulse Ox 100 04/25/18 13:14 Vital Signs Reviewed: Yes Eyes: Positive: Conjunctiva Clear ENT: Positive: Hearing grossly normal, Other - CLUSTER OF VESICLES HARD PALATE. TENDER Neck: Positive: Supple Respiratory: Positive: No respiratory distress, No accessory muscle use Cardiovascular: Positive: Pulses Normal Abdomen Description: Positive: Soft Musculoskeletal: Positive: No Edema Neurological: Positive: Alert Psychological: Positive: Age Appropriate Behavior Skin: Negative: rashes Course/Dx - Diagnoses Provider Diagnoses: ORAL HERPES Discharge - Sign-Out/Discharge Documenting (check all that apply): Patient Departure - Discharge Plan Condition: Stable Disposition: HOME Prescriptions: Valacyclovir HCl [Valacyclovir] 2 gm PO BID #4 tab Patient Education Materials: Oral Herpes Simplex Virus Infections (ED) Referrals: Susan Minor CANT HOOKER [Primary Care Provider] - If Needed - Billing Disposition and Condition Condition: STABLE Disposition: Home
== END 2018-04-25 13:59 | disposition home or self-care (01) ==
LOC: UCEAST 12:42
DX: B00.89 Other herpesviral infection (principal); Z88.8 Allergy status to other drugs, medicaments and biological substances; Z88.0 Allergy status to penicillin; Z88.6 Allergy status to analgesic agent
CPT/HCPCS: 99212; G0463

== ENCOUNTER 2018-06-12 16:23 | Emergency (ER) | payer BC ==
[2018-06-12 16:34] VITALS: BP 108/71
--- NOTE | 2018-06-12 16:42 | UC ---
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 As she tried to calm him down, the student ran into her and pt's hips were "squeezed" between the student and the wall. She had immediate pain and fell to the floor. Other teachers brought her a chair and an ice pack. After awhile her pain continued so her picked her up and brought her to . Currently she is ambulating without assistance, but does have a shuffling gait with small steps. She tells me that her pain is only present with movement and is tolerable or not present at rest. She has a history of ankylosing spondylitis and is very concerned that something may be fractured. She does have some pain radiating down her right thigh, but says that she has a known inguinal hernia here and says it could be from that as well. Denies numbness, tingling, loss of bowel/bladder control, or saddle anesthesia. She has not taken anything for pain. - History Of Current Complaint Chief Complaint: UCBackPain Stated Complaint: HIP AND BACK INJURY Time Seen by Provider: 06/12/18 16:41 Hx Last Menstrual Period: 05/29/18 Onset/Duration: Sudden Onset Severity Initially: Severe Severity Currently: Severe Pain Intensity: 10 Pain Scale Used: 0-10 Numeric - Allergies/Home Medications Allergies/Adverse Reactions: Allergies Allergy/AdvReac Type Severity Reaction Status Date / Time ceftazidime Allergy Severe Anaphylatic Verified 06/12/18 16:34 Shock ephedrine Allergy Severe Palpitation Verified 06/12/18 16:34 s metoclopramide [From Reglan] Allergy Severe Rash Verified 06/12/18 16:34 prochlorperazine Allergy Severe Anxiety Verified 06/12/18 16:34 [From Compazine] pseudoephedrine Allergy Severe Palpitation Verified 06/12/18 16:34 s Sulfa (Sulfonamide Allergy Severe Numbness Verified 06/12/18 16:34 Antibiotics) And Tingling tramadol [From Ultram] Allergy Severe Anxiety Verified 06/12/18 16:34 Home Medications: Home Medications Ketorolac TAB * [Toradol TAB *] 10 mg PO SEE INSTRUCTIONS PRN 06/12/18 [History Confirmed 06/12/18] Ondansetron ODT TAB* [Zofran 4 MG Odt TAB*] 4 mg PO Q6H PRN MDD 16 06/12/18 [ History Confirmed 06/12/18] PMH/Surg Hx/FS Hx/Imm Hx - Additional Past Medical History Additional PMH: ankylosing spondylitis Migraines - Surgical History Surgical History: Yes Surgery Procedure, Year, and Place: Ovarian cyst removal, gallbladder removal, C -section endo ,hernia - Family History Known Family History: Positive: Unknown Negative: Hypertension - Social History Occupation: Employed Full-time Lives: With Family Alcohol Use: None Substance Use Type: None Smoking Status (MU): Never Smoked Tobacco Review of Systems Constitutional: Negative Skin: Negative Respiratory: Negative Cardiovascular: Negative Gastrointestinal: Negative Genitourinary: Negative Neurovascular: Negative Musculoskeletal: Other: - Low back pain. B/L hip pain Neurological: Negative Psychological: Negative All Other Systems Reviewed And Are Negative: Yes Physical Exam - Summary Physical Exam Summary: GENERAL: WDWN. No pain distress while seated on stretcher. SKIN: No rashes, sores, lesions, or open wounds. NECK: Supple. FROM. Nontender. No lymphadenopathy. CHEST: CTAB. No r/r/w. No accessory muscle use. Breathing comfortably and in no distress. CV: RRR. Without m/r/g. Pulses intact. Cap refill <2seconds MSK: TTP over lumbar spine. Pain with flexion and extension of spine. Positive SLR b/l. Positive DAVID for back pain b/l. Strength 5/5 B/L LEs including dorsiflexion and plantar flexion. FROM B/L LEs. No edema. B/L hip joints NTTP. NEURO: Alert. Sensations intact B/L LEs L3-S1. DTRs intact. PSYCH: Age appropriate behavior. Triage Information Reviewed: Yes Vital Signs: Initial Vital Signs Temp 98.1 F 06/12/18 16:28 Pulse 71 06/12/18 16:28 Resp 18 06/12/18 16:28 BP 108/71 06/12/18 16:28 Pulse Ox 100 06/12/18 16:28 Vital Signs Reviewed: Yes Hip Injury Course/Dx - Course Course Of Treatment: istop: Reference #: [id number]. XR hips and pelvis: IMPRESSION: Normal radiograph of the bilateral hips. If the patient's symptoms persist follow-up imaging is recommended. CT lumbar spine: IMPRESSION: Mild lower lumbar degenerative disc disease without acute fracture or dislocation or large disc herniation that is visible on CT. Pt has taken norco and percocet in the past without issue other than mild nausea and was therefore given [place] and Zofran in the clinical course for her pain. Results of the imaging were discussed. I suspect she may have a muscle strain or contusion. She says that she has po toradol at home that she can take for pain. Declines crutches, cane, or walker today. Out of work tomorrow to return saturday. F/u with PCP if symptoms persist or if worsen to ED. Pt voices understanding and is agreeable to the plan. - Differential Dx/Diagnosis Provider Diagnoses: B/L hip pain. Low back pain Discharge - Sign-Out/Discharge Documenting (check all that apply): Patient Departure All imaging exams completed and their final reports reviewed: Yes - Discharge Plan Condition: Stable Disposition: HOME Patient Education Materials: Muscle Strain (DC) Forms: *Work Release Referrals: Susan Minor FLIGHT SURVEYOR [Primary Care Provider] - Additional Instructions: If you develop a fever, shortness of breath, chest pain, new or worsening symptoms - please call your PCP or go to the ED. 1) Rest and apply heat to your back 2) May take your at home pain medication as prescribed for pain relief - Billing Disposition and Condition Condition: STABLE Disposition: Home - Attestation Statements Provider Attestation: Per institutional requirements, I have reviewed the chart, however, I was not consulted specifically or made aware of this patient by the midlevel provider. I did not personally evaluate, interact with , or disposition this patient
[2018-06-12] MEDS ORDERED: Ondansetron ODT TAB* 4 MG PO ONE (17:02)
[2018-06-12] MEDS ORDERED: HYDROcodone/ACETAMIN 5-325 MG* 1 TAB PO ONE (17:05)
--- NOTE | 2018-06-12 17:51 | RAD ---
INDICATION: Low back pain with radiation into the bilateral hips COMPARISON: None TECHNIQUE: 2 views of each hip and an AP view of the pelvis were obtained. FINDINGS: The visualized bones of the hips are well-corticated and properly aligned. The joint spaces are normal.. There is no radiographic evidence of acute fracture or dislocation. Incidentally noted is an intrauterine device at the midline pelvis IMPRESSION: Normal radiograph of the bilateral hips. If the patient's symptoms persist follow-up imaging is recommended.
--- NOTE | 2018-06-12 17:54 | RAD ---
INDICATION: Back pain with radiation to the bilateral hips. COMPARISON: CT abdomen pelvis dated February 02, 2018 TECHNIQUE: Contiguous axial sections were obtained beginning lower thoracic vertebra and continuing through the sacrum. Images were reconstructed in the sagittal and coronal planes. FINDINGS: The vertebra are in normal alignment. No fracture is seen. There is no hyperdense material in the thecal sac to indicate acute hemorrhage. There is mild loss of intervertebral disc height at multiple levels of the lower thoracic and lumbar spine. On the axial view images there is mild broad-based disc protrusion at L3/L4 but this does not appear to yield any significant central canal or neural foraminal stenosis. There is mild disc protrusion at L4/L5 but this does not appear to yield any significant neural foraminal stenosis. The visualized soft tissues do not exhibit any acute abnormalities. Incidentally noted are surgical clips in the gallbladder fossa. IMPRESSION: Mild lower lumbar degenerative disc disease without acute fracture or dislocation or large disc herniation that is visible on CT.
== END 2018-06-12 18:17 | disposition home or self-care (01) ==
LOC: UCEAST 16:23
DX: M25.552 Pain in left hip (principal); M25.551 Pain in right hip; M54.5 Low back pain; M51.36 Other intervertebral disc degeneration, lumbar region; Z88.1 Allergy status to other antibiotic agents; Z88.5 Allergy status to narcotic agent; Z88.2 Allergy status to sulfonamides; Z88.8 Allergy status to other drugs, medicaments and biological substances
CPT/HCPCS: 72131; 73523; 99212; A9270-GY; G0463

== ENCOUNTER 2018-07-15 16:18 | Emergency (ER) | payer BC ==
--- OUTSIDE RECORDS SUMMARY | 2018-07-15 16:22 | XMS REPORT | Continuity of Care Document ---
:1980 External Reference #:[id number] Author Name Susan Minor NP Address [address] [place] [address] Care Team Providers Name Role Phone Susan Minor NP Care Team Information Oxygen Tank Filler Unavailable Payers Type Date Identification Numbers Payment Provider Subscriber Effective: Policy Number: [id number] [employer](Open [employer]) Wanda Ochoa 2015 Expires: 2017 Group Number: [id number] [address] PayID: [id number] [place] [address] Effective: 2017 Policy Number: [id number] [facility] Zenaida Ochoa Group Name: BC/BS of [facility] 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 Tobacco Use Start: Unknown Never Smoked Cigarettes ETOH Use Denies alcohol use Recreational Drug Use Denies Drug Use Tobacco Use Start: Unknown Patient has never smoked Smoking Status Reviewed: 06/19/18 Patient has never smoked Enjoy Exercising Enjoys exercising Allergies, Adverse Reactions, Alerts Date Description Reaction Status Severity Comments 08/03/2016 Sulfa numbness and tingling Active 08/03/2016 Ultram withdrawl sx Active 08/03/2016 Compazine painic attack Active 08/03/2016 Reglan rash Active 08/03/2016 Ephedrine heart palpitations Active 08/03/2016 Sudafed heart palpitation Active 08/03/2016 Ceftazidime rash and itchy throat Active 01/11/2017 Adhesives Active Medications Medication Date Status Form Strength Qnty SIG Indications Ordering Provider Fluticasone 03/25/ Active Suspension 50mcg/Act 16gm 2 sprays J01.90 Alen Propionate 2017 into each Heetderks nostril , once daily Benadryl 02/03/ Active take before 2017 infusion MICHAEL Minor Prednisone 02/03/ Active take before 2017 infusion MICHAEL Minor Amitriptyline 07/18/ Active Tablets 10mg 30tab 1 tab by G43.101 Alen HCL 2016 s mouth every Heetder night , Ondansetron 11/16/ Active Tablets 4mg 30tab dissolve 1 Manuela 2016 Dispers s tab by traci Cortez three [employer]-C times a day as needed nausea Mirena (52 MG) 08/03/ Active IUD 20mcg/24H inserted Manuela 2015 R 09/20 TYSON CortezP-C Tylenol 8 Hour 00/ Active Tablets ER 650mg 1 by mouth Unknown Arthritis Pain 0000 as needed Ketorolac / Active Tablets 10mg 20tab take one Alen Tromethamine 0000 s tablet by Heetdominique mouth every , 4 to 6 hours; no more than four tablets per day Pantoprazole / Active Tablets DR 40mg Unknown Sodium 0000 Orencia 00/ Active Soln Every 4 Unknown 0000 Prefill weeks Syringe dosage varies Azithromycin 03/25/ Hx Tablets 250mg 6tabs take 2 tab J01.90 Julio 2018 - by mouth on Tez 06/19/ day 1 III2017 followed by [employer]-C 1 tab by mouth daily for 4 additional days Azithromycin 12/16/ Hx Tablets 250mg 6tabs 2 tabs J01.90 [facility] 2017 - today. 1 Shortle, 02/03/ tab daily DE ALCHOLIZER 2017 for the following 4 days. Benzonatate 08/06/ Hx Capsules 100mg 60cap 1-2 R05 Julio 2016 - s capsules by Paden 02/03/ mouth every III, 2017 8 hours as [employer]-C needed for cough. Rizatriptan 07/18/ Hx Tablets 5mg 14tab 1 tab by G43.101 Alen Benzoate 2017 - s mouth as Renee 02/03/ needed at MD 2018 onset of migraine symptoms. can take another 2 hours later if needed. Azithromycin 03/12/ Hx Tablets 250mg 6tabs take 2 tab J06.9 Julio 2017 - by mouth on Paden 07/24/ day 1 III, 2017 followed by [employer]-C 1 tab by mouth daily for 4 additional days Lexapro 02/15/ Hx Tablets 10mg 30tab 1/2 tablet F41.9 Manuela 2017 - s by mouth x Dana, days then [employer]-C 2017 increase to 1 tab po daily Azithromycin 09/28/ Hx Tablets 250mg 6tabs take 2 J01.90 Alen 2016 - tablets by Renee 11/16/ mouth one MD 2017 time then take one daily for 4 days. Wait until patient calls to fill. Flonase Allergy 09/28/ Hx Suspension 50mcg/Act 1unit 1 puff J01.90 Alen Relief 2016 - intranasal Renee 03/12/ jesusff daily MD 2017 every morning in each nostril Estradiol /14/ Hx Tablets 2mg 90tab 1 tab po qd Manuela 2015 Lazara s Dana, 02/03/ [facility] 2017 Estradiol 11/14/ Hx Tablets 1mg 90tab 1 tab po qd Manuela 2015 - s Dana, 02/03/ [facility] 2017 Clindamycin 08/20/ Hx Gel 1% 60uni apply a N64.9 Manuela Phosphate 2016 - ts thin film Dana, to affected [facility] 2017 area once or twice daily Remicade 00/00/ Hx Infusions Every 6 Unknown 0000 - weeks 2017 Estradiol /00/ Hx Tablets 3mg 30tab 1 by mouth Unknown 0000 - s every day 2015 Prednisone 00/00/ Hx Tablets 10mg Unknown 0000 - 2017 Medications Administered in Office Medication Date Status Form Strength Qnty SIG Indications Ordering Provider Injection Administered Injection Alen Ketorolac 017 Herminio Duran MD Per 15 MG (Toradol) Immunizations CPT Code Status Date Vaccine Lot # [id number] Given 09/04/2017 Influenza Virus Vaccine, Quadrivalent, 3 Yr > [id number] Quad, Preserv Free [id number] Given 10/12/2016 Influenza Virus Vaccine, Quadrivalent, 3 Yr > [id number] Quad, Preserv Free Vital Signs Date Vital Result Comment 06/19/2018 3:06pm Weight 123.00 lb Weight 55.793 kg BP Systolic 98 mmHg BP Diastolic 64 mmHg Heart Rate 80 /min Body Temperature 98.8 F Respiratory Rate 12 /min 04/10/2018 3:52pm Weight 123.00 lb Weight 55.793 kg BP Systolic 98 mmHg BP Diastolic 68 mmHg Heart Rate 81 /min Body Temperature 99.5 F Respiratory Rate 18 /min O2 % BldC Oximetry 98 % 03/25/2018 2:49pm Weight 123.00 lb Weight 55.793 kg BP Systolic 114 mmHg BP Diastolic 70 mmHg Heart Rate 78 /min Body Temperature 99.0 F Respiratory Rate 18 /min O2 % BldC Oximetry 99 % 02/03/2018 2:48pm Weight 122.00 lb Weight 55.339 kg BP Systolic 102 mmHg BP Diastolic 58 mmHg Heart Rate 87 /min Body Temperature 97.1 F Respiratory Rate 16 /min Height 67 inches 5'7" BMI (Body Mass Index) 19.1 kg/m2 O2 % BldC Oximetry 98 % 12/16/2017 3:00pm Weight 125.00 lb Weight 56.700 kg BP Systolic 104 mmHg BP Diastolic 68 mmHg Heart Rate 84 /min Body Temperature 98.1 F Respiratory Rate 16 /min O2 % BldC Oximetry 99 % 12/12/2017 10:41am Weight 121.00 lb Weight 54.886 kg BP Systolic 102 mmHg BP Diastolic 70 mmHg Heart Rate 88 /min Body Temperature 98.9 F Respiratory Rate 16 /min O2 % BldC Oximetry 98 % 09/04/2017 5:32pm Weight 122.00 lb Weight 55.339 kg BP Systolic 90 mmHg BP Diastolic 60 mmHg Heart Rate 88 /min Body Temperature 97.7 F Respiratory Rate 14 /min O2 % BldC Oximetry 98 % 08/06/2017 3:10pm Weight 125.00 lb Weight 56.700 kg BP Systolic 90 mmHg BP Diastolic 60 mmHg Heart Rate 92 /min Body Temperature 98.0 F Respiratory Rate 20 /min O2 % BldC Oximetry 98 % 07/24/2017 4:08pm Weight 120.00 lb Weight 54.432 kg BP Systolic 90 mmHg BP Diastolic 60 mmHg Heart Rate 80 /min Body Temperature 98.7 F Respiratory Rate 16 /min 07/18/2017 4:13pm Weight 124.00 lb Weight 56.246 kg BP Systolic 110 mmHg BP Diastolic 70 mmHg Heart Rate 68 /min Body Temperature 98.5 F 03/12/2017 4:42pm Weight 117.00 lb Weight 53.071 kg BP Systolic 110 mmHg BP Diastolic 70 mmHg Heart Rate 92 /min Body Temperature 98.5 F Respiratory Rate 20 /min O2 % BldC Oximetry 99 % 02/15/2017 9:54am Weight 121.00 lb Weight 54.886 kg BP Systolic 94 mmHg BP Diastolic 56 mmHg Heart Rate 74 /min Body Temperature 98.8 F Respiratory Rate 14 /min O2 % BldC Oximetry 99 % 01/11/2017 3:15pm Weight 120.00 lb Weight 54.432 kg BP Systolic 92 mmHg BP Diastolic 58 mmHg Heart Rate 89 /min Body Temperature 97.0 F Respiratory Rate 16 /min O2 % BldC Oximetry 98 % 11/16/2016 3:30pm Weight 123.00 lb Weight 55.793 kg BP Systolic 90 mmHg BP Diastolic 60 mmHg Heart Rate 56 /min Body Temperature 98.9 F Respiratory Rate 12 /min 10/19/2016 2:17pm Weight 122.00 lb Weight 55.339 kg BP Systolic 100 mmHg BP Diastolic 64 mmHg Heart Rate 84 /min Body Temperature 98.5 F Respiratory Rate 12 /min 09/28/2016 11:29am Weight 123.00 lb Weight 55.793 kg BP Systolic 100 mmHg BP Diastolic 69 mmHg Heart Rate 114 /min Body Temperature 99.3 F O2 % BldC Oximetry 98 % 08/20/2016 10:15am Weight 121.00 lb Weight 54.886 kg BP Systolic 94 mmHg BP Diastolic 58 mmHg Heart Rate 80 /min Body Temperature 98.8 F Respiratory Rate 12 /min 08/03/2016 11:08am Weight 121.00 lb Weight 54.886 kg BP Systolic 90 mmHg BP Diastolic 60 mmHg Heart Rate 72 /min Body Temperature 98.1 F Respiratory Rate 12 /min Height 66.5 inches 5'6.50" BMI (Body Mass Index) 19.2 kg/m2 Results Test Date Facility Test Result H/L Range Note CBC Auto 02/02/2018 [facility] White Blood 11.3 10^3/ uL High 3.5-10.8 Diff [phone] Count Red Blood Count 4.73 10^6/uL 4.0-5.4 Hemoglobin [...] Red Blood Cells % 0 Laboratory test 02/02/2018 [facility] Lactic Acid 0.7 mmol/L 0.5-2.0 1 finding [phone] HCG < 0.60 mIU/mL 2 Laboratory test 02/02/2018 [facility] Magnesium 2.1 mg/dL 1.9-2.7 finding [phone] Lipase 17 U/L 11.0-82.0 Comp Metabolic 02/02/2018 [facility] Sodium 134 mmol/ L Low 139-145 Panel [phone] Potassium 3.9 mmol/L 3.5-5.0 Chloride 104 mmol/L [...] >60 Egfr 112.4 >60 3 Laboratory test 12/12/2017 [facility] Strep PCR neg finding (607)- - CBC Auto Diff 11/16/2016 [facility] White Blood 10.3 3.5-10.8 [phone] Count 10^3/uL Red Blood Count 4.58 10^6/uL 4.0-5.4 Hemoglobin [...] 0-2 Nucleated Red Blood Cells % 0 Comp Metabolic Panel 11/16/2016 [facility] Sodium 135 mmol/L 133-145 [phone] Potassium 4.3 mmol/L 3.5-5.0 Chloride 102 mmol/L [...] Egfr Non- 89.2 >60 Egfr 114.7 >60 4 Laboratory test 11/16/2016 [facility] Magnesium 2.2 mg/dL 1.9-2.7 5 finding [phone] Laboratory test 10/19/2016 In House Lab HCG DIP Test NEG Neg finding (607)- - Urine DIP 10/19/2016 [facility] House [facility] Leukocytes NEG Neg (607)- - Urine Nitrites NEG Neg Urobilinogen NORM Norm Total Protein, Urine TRACE Neg Urine pH 8 High 5-6 Urine Blood NEG Neg Specific [place] 1.01 1.01-1.02 Urine Ketones NEG Neg Urine Bilirubin NEG Neg Urine Glucose NORM Norm Laboratory test 08/20/2016 [facility] TSH (Thyroid 0.84 mcIU/mL 0.34-5.60 6 finding [phone] Stim Horm) Vitamin B12 335 pg/mL 180-914 7 Magnesium 2.2 mg/dL 1.9-2.7 8 Comp Metabolic Panel 08/20/2016 [facility] Sodium 138 mmol/L 133-145 [phone] Potassium 4.1 mmol/L 3.5-5.0 Chloride 105 mmol/L [...] 103.8 >60 9 CBC Auto Diff 08/20/2016 [facility] White Blood 5.8 10^3/uL 3.5-10.8 [phone] Count Red Blood Count 4.50 10^6/uL 4.0-5.4 Hemoglobin [...] 5 Kidney failure <15 (or dialysis) 4 Because ethnic data is not always readily [...] 15-29 5 Kidney failure <15 (or dialysis) 5 [id number] 7 Normal Range 180 to 914 Indeterminate Range 145 to 180 Deficient Range <145 8 [id number] 9 Because ethnic data is not always [...] Kidney failure <15 (or dialysis) Procedures Date Code Description Status 07/18/2017 27164 Therapeutic,Prophylactic,Or Diagnostic Inj,SC/Im Completed Specify Drug 10/07/2014 [id number] Mammogram Completed Encounters Type Date Location Provider Dx Diagnosis Office Visit 04/10/2018 [facility] Alen K40.91 Unilateral inguinal 4:00p MD Renee hernia, w/o obst or gangrene, recurrent Office Visit 03/25/2018 [facility] Julio Reagan J01.90 Acute sinusitis, 2:45p III, [employer]-C unspecified Office Visit 02/03/2018 Main Office Susan R11.0 Nausea 2:30p Shortle, DE ALCHOLIZER Office Visit 12/16/2017 Main Office Susan J01.90 Acute sinusitis, 2:45p Shortle, DE ALCHOLIZER unspecified Office Visit 12/12/2017 Main Office Susan J06.9 Acute upper 10:30a Shortle, DE ALCHOLIZER respiratory infection, unspecified Office Visit 09/04/2017 Main Office Alen R05 Cough 5:15p MD Renee Z23 Encounter for immunization Office Visit 08/06/2017 3:15p Main Office Julio Reagan R05 Cough III, [employer]-C Office Visit 07/24/2017 4:00p Main Office Alen J04.0 Acute laryngitis MD Renee Office Visit 07/18/2017 4:00p Main Office Alen G43.101 Migraine with aura, MD Renee not intractable, with status migrainosus Office Visit 03/12/2017 4:15p Main Office Julio Reagan J06.9 Acute upper III, [employer]-C respiratory infection, unspecified Office Visit 02/15/2017 9:45a Main Office Manuela Cortez F41.9 Anxiety disorder, [employer]-C unspecified Office Visit 01/11/2017 3:15p Main Office Manuela Cortez, R00.2 Palpitations [employer]-C Office Visit 11/16/2016 3:15p Main Office Manuela Cortez, K40.91 Unilateral inguinal [employer]-C hernia, w/o obst or gangrene, recurrent R00.2 Palpitations Office Visit 10/19/2016 2:00p Main Office Alen Duran, R10.2 Pelvic and MD perineal pain Office Visit 09/28/2016 11:00a Main Office Alen Duran, J01.90 Acute sinusitis, unspecified Office Visit 08/20/2016 10:00a Main Office Manuela Cortez, R55 Syncope and [employer]ATOR-C collapse N64.9 Disorder of breast, unspecified Office Visit 08/03/2016 11:00a Main Office Manuela Cortez, R55 Syncope and [employer]PERATOR-C collapse Plan of Treatment 06/19/2018 - Susan Minor, NPR10.31 Right lower quadrant painComments:No acute concerns today.Patient encouraged to call surgeon for reassessmentEducated on new/worseningsymptoms and when to call/return or seek immediate medical attentionDiscussed returning to work and patient would like to return with limitations. Note provided. Patient stated understanding and agreesto plan
[2018-07-15 16:35] VITALS: BP 105/72
--- NOTE | 2018-07-15 16:40 | UC ---
Respiratory Complaint HPI - HPI Summary HPI Summary: 37 yo female presents with dry cough. She tells me that she is currently undergoing orencia therapy for ankylosing spondylitis and is concerned that if she is ill she may not be able to undergo her infusion. Her cough began 1 week ago and has been persisting since without production. She has not been taking anything OTC. Denies fever, chills, sinus symptoms, SOB, chest pain. - History of Current Complaint Chief Complaint: UCRespiratory Stated Complaint: COUGH, AND CHEST CONGESTION Time Seen by Provider: 07/15/18 16:38 Hx Obtained From: Patient Hx Last Menstrual Period: 05/29/18 Onset/Duration: Gradual Onset Severity Currently: None Pain Intensity: 0 Character: Cough: Nonproductive - Allergies/Home Medications Allergies/Adverse Reactions: Allergies Allergy/AdvReac Type Severity Reaction Status Date / Time ceftazidime Allergy Severe Anaphylatic Verified 07/15/18 16:35 Shock ephedrine Allergy Severe Palpitation Verified 07/15/18 16:35 s metoclopramide [From Reglan] Allergy Severe Rash Verified 07/15/18 16:35 prochlorperazine Allergy Severe Anxiety Verified 07/15/18 16:35 [From Compazine] pseudoephedrine Allergy Severe Palpitation Verified 07/15/18 16:35 s Sulfa (Sulfonamide Allergy Severe Numbness Verified 07/15/18 16:35 Antibiotics) And Tingling tramadol [From Ultram] Allergy Severe Anxiety Verified 07/15/18 16:35 Home Medications: Home Medications Abatacept [Orencia] 125 mg SC 07/15/18 [History] PMH/Surg Hx/FS Hx/Imm Hx - Additional Past Medical History Additional PMH: Ankylosing spondylitis - Surgical History Surgical History: Yes Surgery Procedure, Year, and Place: Ovarian cyst removal, gallbladder removal, C -section endo ,hernia - Family History Known Family History: Positive: Unknown Negative: Hypertension - Social History Alcohol Use: None Substance Use Type: None Smoking Status (MU): Never Smoked Tobacco Review of Systems Constitutional: Negative Skin: Negative Eyes: Negative ENT: Negative Respiratory: Cough Cardiovascular: Negative Gastrointestinal: Negative Neurovascular: Negative Neurological: Negative Psychological: Negative All Other Systems Reviewed And Are Negative: Yes Physical Exam - Summary Physical Exam Summary: GENERAL: NAD. WDWN. No pain distress. SKIN: No rashes, sores, lesions, or open wounds. HEENT: Head: AT/NC Eyes: Conjunctiva clear without inflammation or discharge. Ears: Hearing grossly normal. TMs intact, no bulging, erythema, or edema. Nose: Nasal mucosa pink and moist. NTTP maxillary and frontal sinus. Throat: Posterior oropharynx without exudates, erythema, or tonsillar enlargement. Uvula midline. NECK: Supple. Nontender. No lymphadenopathy. CHEST: Mild wheezing RUL. No r/r. No accessory muscle use. Breathing comfortably and in no distress. CV: RRR. Without m/r/g. Pulses intact. Cap refill <2seconds NEURO: Alert. PSYCH: Age appropriate behavior. Triage Information Reviewed: Yes Vital Signs: Initial Vital Signs Temp 97.8 F 07/15/18 16:31 Pulse 85 07/15/18 16:31 Resp 18 07/15/18 16:31 BP 105/72 07/15/18 16:31 Pulse Ox 100 07/15/18 16:31 Vital Signs Reviewed: Yes UC Diagnostic Evaluation - Laboratory O2 Sat by Pulse Oximetry: 100 Respiratory Course/Dx - Course Course Of Treatment: CXR: IMPRESSION: No radiographic evidence of acute cardiopulmonary disease. Pt was given a levalbuterol nebulizer treatment with significant improvement. Lung sounds improved and are without wheezing. She has a history of SVT that resolved spontaneously and is hesistant to use an albuterol inhaler, therefore will rx for amoxicillin, tessalon, and cough syrup at bedtime. 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 Pt voices understanding and is agreeable to the plan. - Differential Dx/Diagnosis Provider Diagnoses: Bronchitis Discharge - Sign-Out/Discharge Documenting (check all that apply): Patient Departure All imaging exams completed and their final reports reviewed: Yes - Discharge Plan Condition: Stable Disposition: HOME Prescriptions: Amoxicillin PO (*) [Amoxicillin 500 MG CAP*] 500 mg PO Q12H #14 cap Benzonatate CAP* [Tessalon 100 MG CAP*] 100 mg PO TID PRN #21 cap PRN Reason: Cough Codeine Phosphate/Guaifenesin [Guaifen-Codeine 100-10 mg/5 ml] 5 ml PO BEDTIME PRN #35 ml MDD 5mL PRN Reason: Cough Patient Education Materials: Acute Bronchitis (ED) Referrals: No Primary Care Phys,NOPCP [Primary Care Provider] - Additional Instructions: If you develop a fever, shortness of breath, chest pain, new or worsening symptoms - please call your PCP or go to the ED. Please call your Clay Washer and ask if you should proceed with your infusion this week - Billing Disposition and Condition Condition: STABLE Disposition: Home
[2018-07-15] MEDS ORDERED: Levalbuterol 0.63MG/3ML NEB* UNIT OF USE INH ONE (16:44)
--- NOTE | 2018-07-15 17:09 | RAD ---
INDICATION: Cough COMPARISON: Most recent chest x-ray is dated February 02, 2018 TECHNIQUE: PA and lateral views of the chest were obtained. FINDINGS: Overlying the left chest there is again seen an implantable cardiac monitoring device. The heart and mediastinum are normal in size and contour. The lungs are grossly clear. There is no evidence of large pleural effusion. Visualized bones are normal for the patient's age. There is no radiographic evidence of free air beneath the diaphragm IMPRESSION: No radiographic evidence of acute cardiopulmonary disease.
== END 2018-07-15 17:45 | disposition home or self-care (01) ==
LOC: UCEAST 16:18
DX: J40 Bronchitis, not specified as acute or chronic (principal); M45.9 Ankylosing spondylitis of unspecified sites in spine; Z88.1 Allergy status to other antibiotic agents; Z88.5 Allergy status to narcotic agent; Z88.2 Allergy status to sulfonamides; Z88.8 Allergy status to other drugs, medicaments and biological substances
CPT/HCPCS: 71046; 99212; G0463

== ENCOUNTER 2018-09-02 09:06 | Emergency (ER) | payer BC ==
--- OUTSIDE RECORDS SUMMARY | 2018-09-02 09:14 | XMS REPORT | Continuity of Care Document ---
:1980 External Reference #:[id number] Author Name Gladis Burciaga Care Team Providers Name Role Phone Manuela Cortez FNP Primary Care Physician Unavailable Payers Type Date Identification Numbers Payment Provider Subscriber Expires: 2018 Policy Number: [id number] [employer] Insurance Wanda Ochoa PayID: [id number] [address] [place] [address] Policy Number: [id number] [facility] Zenaida Ochoa PayID: [id number] [address] [address] [place] [address] Advance Directives Description No Information Available Problems Description No Information Family History Date Family Member(s) Problem(s) Comments Father Lewy Body Disease, Ra Mother Cancer Social History Type Date Description Comments Sex Unknown Marital Status Lives With Lives With Daughter 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, 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, 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 Tobacco Use Start: Unknown Never Smoked Cigarettes Smoking Status Reviewed: 08/25/18 Never Smoked Cigarettes ETOH Use Denies alcohol use Tobacco Use Start: Unknown Patient has never smoked Recreational Drug Use Denies Drug Use Allergies, Adverse Reactions, Alerts Date Description Reaction Status Severity Comments 11/22/2016 Sulfa Antibiotics Active 11/22/2016 Ultram Active 11/22/2016 Compazine Active 11/22/2016 Reglan Active 11/22/2016 Ephedrine Active 11/22/2016 Sudafed Active 11/22/2016 Ceftazidime Active Medications Medication Date Status Form Strength Qnty SIG Indications Ordering Provider Alavert 08/25/ Active Tablets ER 5-120mg [facility] Allergy/Sinus 2018 12HR MD Aurelio Orellana 08/25/ Active Solution 250mg every 4 Other 2018 Rec weeks Ordering Provider Ondansetron / Active Tablets 4mg dissolve Unknown 0000 Dispers one tablet orally every 8 hours as needed for nausea. Mirena (52 MG) / Active IUD 20mcg/24HR Unknown 0000 Ketorolac 00/ Active Tablets 10mg take 1 by Unknown Tromethamine 0000 mouth every 8 hours as needed for migraine. take with food. Tylenol 8 Hour 0000/ Active Tablets ER 650mg 1 by mouth Unknown Arthritis Pain 0000 Immunizations Description No Information Available Vital Signs Date Vital Result Comment 08/25/2018 3:12pm Height 67 inches 5'7" Weight 127.00 lb Heart Rate 96 /min BP Systolic 100 mmHg BP Diastolic 62 mmHg O2 % BldC Oximetry 96 % BMI (Body Mass Index) 19.9 kg/m2 Results Description No Information Available Procedures Date Code Description Status 08/07/2016 15948 Holter Monitor Review (24 hr)dr miguelito & interp only Completed Encounters Description No Information Available Plan of Treatment 08/25/2018 - Trinity Orellana MDR06.02 Shortness of breathNew Orders:Spirometry Pre/ Post Bronchodilator, Ordered: 08/25/18ollow up:2 weeks, after [id number] Nontoxic goiter, unspecifiedNew Xrays:US Thyroid, Ordered: 08/25/1841.9 Anxiety disorder, unspecifiedComments:melatonin 2-3 hours before bedtime every daystress management techniques discussed
[2018-09-02] MEDS ORDERED: Ondansetron ODT TAB* 4 MG PO ONE (09:30)
[2018-09-02] MEDS ORDERED: diPHENhydraMINE IV* 50 MG/ML 1 ml VIAL (BENADRYL) IV ONE (10:28)
[2018-09-02] MEDS ORDERED: Ketorolac INJ* 30 MG/ML 1 ML VIAL IV PUSH ONE (10:29)
[2018-09-02] MEDS ORDERED: NS 0.9% 1000 ML* 1,000 ML IV SCH (10:30)
--- NOTE | 2018-09-02 10:44 | UC ---
Headache HPI - HPI Summary HPI Summary: Patient with a known history of migraine headaches presents with a typical migraine starting 2 days ago. Hasnausea and light sensitivity and her vision feels "off". Took Toradol last night without much effect. Thinks her symptoms were triggered by allergies. Has not taken any antihistamines. No numbnes, tingling or focal weakness. No slurring of speech or gait instability. - History Of Current Complaint Chief Complaint: UCHeadache Stated Complaint: HEADACHE Time Seen by Provider: 09/02/18 10:24 Hx Obtained From: Patient, Family/Robotics Engineer - Hx Last Menstrual Period: Onset/Duration: Gradual Onset, Lasting Days, Still Present Onset Of Symptoms: Gradual Initially Headache Was: Moderate Currently Pain Is: Moderate Pain Intensity: 9 Pain Scale Used: 0-10 Numeric Timing: Constant Character: Throbbing, Migraine Location of Headache: Temporal, Parietal Aggravating Factor(s): Exertion, Bright Lights Allevating Factor(s): Nothing Associated Signs And Symptoms: Positive: Nausea, Visual Changes - Allergies/Home Medications Allergies/Adverse Reactions: Allergies Allergy/AdvReac Type Severity Reaction Status Date / Time ceftazidime Allergy Severe Anaphylatic Verified 09/02/18 09:19 Shock ephedrine Allergy Severe Palpitation Verified 09/02/18 09:19 s metoclopramide [From Reglan] Allergy Severe Rash Verified 09/02/18 09:19 prochlorperazine Allergy Severe Anxiety Verified 09/02/18 09:19 [From Compazine] pseudoephedrine Allergy Severe Palpitation Verified 09/02/18 09:19 s Sulfa (Sulfonamide Allergy Severe Numbness Verified 09/02/18 09:19 Antibiotics) And Tingling tramadol [From Ultram] Allergy Severe Anxiety Verified 09/02/18 09:19 PMH/Surg Hx/FS Hx/Imm Hx - Additional Past Medical History Additional PMH: "SPONDYLITIS" Neurological History: Migraine - Surgical History Surgical History: Yes Surgery Procedure, Year, and Place: Ovarian cyst removal, gallbladder removal, C -section endo ,hernia - Family History Known Family History: Negative: Hypertension - Social History Alcohol Use: None Substance Use Type: None Smoking Status (MU): Never Smoked Tobacco Review of Systems All Other Systems Reviewed And Are Negative: Yes Constitutional: Positive: Negative Eyes: Positive: Photophobia Respiratory: Positive: Negative Cardiovascular: Positive: Negative Gastrointestinal: Positive: Nausea Neurological: Positive: Headache Physical Exam Triage Information Reviewed: Yes Appearance: Well-Appearing, Well-Nourished, Pain Distress - MOD Vital Signs: Initial Vital Signs Temp 98.2 F 09/02/18 09:13 Pulse 77 09/02/18 09:13 Resp 18 09/02/18 09:13 BP 99/73 09/02/18 09:13 Pulse Ox 99 09/02/18 09:13 Vital Signs Reviewed: Yes Eyes: Positive: Conjunctiva Clear, Other: - PERRL, EOMI ENT: Positive: Hearing grossly normal Neck: Positive: Supple Respiratory Exam: Normal Cardiovascular Exam: Normal Abdomen Description: Positive: Soft Musculoskeletal: Positive: ROM Intact, No Edema Neurological: Positive: Alert, Muscle Tone Normal Psychological: Positive: Age Appropriate Behavior Skin: Negative: Rashes Re-Evaluation - Re-Evaluation First Eval Re-Evaluation Time: 11:30 - FEELS BETTER AFTER IVF, TORADOL AND BENADRYL. READY FOR D/C Change: Improved Headache Course/Dx - Differential Dx/Diagnosis Provider Diagnosis: Migraine Discharge - Sign-Out/Discharge Documenting (check all that apply): Patient Departure All imaging exams completed and their final reports reviewed: No Studies - Discharge Plan Condition: Stable Disposition: HOME Patient Education Materials: Migraine Headache (ED) Forms: *Work Release Referrals: Trinity Orellana MD [Primary Care Provider] - If Needed Additional Instructions: YOUR SYMPTOMS IMPROVED AFTER 1 L NORMAL SALINE, 30 MG OF TORADOL AND 50 MG OF BENADRYL IV. YOU ALSO RECEIVED 4 MG OF ODT ZOFRAN. BE SURE TO STAY WELL- HYDRATED AND RESTED. FOLLOW-UP WITH YOUR PCP IF NEEDED. - Billing Disposition and Condition Condition: STABLE Disposition: Home
[2018-09-02 11:56] VITALS: BP 97/62
== END 2018-09-02 11:54 | disposition home or self-care (01) ==
LOC: UCEAST 09:06
DX: G43.909 Migraine, unspecified, not intractable, without status migrainosus (principal); Z88.1 Allergy status to other antibiotic agents; Z88.8 Allergy status to other drugs, medicaments and biological substances; Z88.5 Allergy status to narcotic agent
CPT/HCPCS: 96360; 96374; 96375; 99212; A9270-GY; G0463; J1200; J1885

== ENCOUNTER 2018-09-16 16:39 | Emergency (ER) | payer BC ==
[2018-09-16 16:48] VITALS: BP 106/68
--- NOTE | 2018-09-16 17:25 | UC ---
Respiratory Complaint HPI - HPI Summary HPI Summary: 37-year-old woman comes in clinic today with a chief complaint of upper respiratory tract infection. He does have rheumatoid arthritis and ankylosing spondylitis and due to medications she is immunosuppressed. She also has an inguinal hernia repair surgery scheduled for September 24, 2018. Her sputum is green. She's been having splinting chest pains bilaterally in the lower chest. Started mostly last night but then she had another episode earlier on today. Her throat is also very sore. The chest pains were worse with taking a deep breath or coughing. Better with rest. She is on amitiza. No calf pain or swelling. No Hx DVT/PE. Patient has been having difficulties with shortness of breath for months now. She seen her primary care physician about this and has been working on scheduling testing. - History of Current Complaint Chief Complaint: UCRespiratory Stated Complaint: RESP COMPLAINT Time Seen by Provider: 09/16/18 17:08 Hx Last Menstrual Period: Pain Intensity: 0 - Allergies/Home Medications Allergies/Adverse Reactions: Allergies Allergy/AdvReac Type Severity Reaction Status Date / Time ceftazidime Allergy Severe Anaphylatic Verified 09/16/18 16:48 Shock ephedrine Allergy Severe Palpitation Verified 09/16/18 16:48 s metoclopramide [From Reglan] Allergy Severe Rash Verified 09/16/18 16:48 prochlorperazine Allergy Severe Anxiety Verified 09/16/18 16:48 [From Compazine] pseudoephedrine Allergy Severe Palpitation Verified 09/16/18 16:48 s Sulfa (Sulfonamide Allergy Severe Numbness Verified 09/16/18 16:48 Antibiotics) And Tingling tramadol [From Ultram] Allergy Severe Anxiety Verified 09/16/18 16:48 Home Medications: Home Medications diphenhydrAMINE HCl [Benadryl Allergy] 25 mg PO DAILY WITH MEAL 09/16/18 [ History Confirmed 09/16/18] PMH/Surg Hx/FS Hx/Imm Hx Previously Healthy: Yes - RA AND ANKYLOSING SPONDYLITIS - Surgical History Surgical History: Yes Surgery Procedure, Year, and Place: Ovarian cyst removal, gallbladder removal, C -section endo ,hernia - Family History Known Family History: Negative: Hypertension - Social History Alcohol Use: Rare Substance Use Type: None Smoking Status (MU): Never Smoked Tobacco Review of Systems All Other Systems Reviewed And Are Negative: Yes Constitutional: Positive: Negative Skin: Positive: Negative Eyes: Positive: Negative ENT: Positive: Sore Throat, Nasal Discharge, Sinus Congestion Respiratory: Positive: Shortness Of Breath, Cough Cardiovascular: Positive: Chest Pain - see hpi Gastrointestinal: Positive: Negative Motor: Positive: Negative Neurovascular: Positive: Negative Musculoskeletal: Positive: Negative Neurological: Positive: Negative Psychological: Positive: Negative Is Patient Immunocompromised?: Yes - amitiza Physical Exam Triage Information Reviewed: Yes Appearance: No Pain Distress, Well-Nourished, Ill-Appearing - mild Vital Signs: Initial Vital Signs Temp 98.2 F 09/16/18 16:44 Pulse 81 09/16/18 16:44 Resp 18 09/16/18 16:44 BP 106/68 09/16/18 16:44 Pulse Ox 100 09/16/18 16:44 Vital Signs Reviewed: Yes Eye Exam: Normal Eyes: Positive: Conjunctiva Clear ENT: Positive: Pharyngeal erythema, Nasal congestion, TMs normal Neck exam: Normal Neck: Positive: Supple Respiratory: Positive: Lungs clear, Normal breath sounds, No respiratory distress Cardiovascular: Positive: RRR Musculoskeletal Exam: Normal Musculoskeletal: Positive: Strength Intact, ROM Intact, No Edema, Other: - no calf tenderness Neurological Exam: Normal Neurological: Positive: Alert, Muscle Tone Normal Psychological Exam: Normal Psychological: Positive: Age Appropriate Behavior Skin Exam: Normal UC Diagnostic Evaluation - Laboratory O2 Sat by Pulse Oximetry: 100 Respiratory Course/Dx - Course Course Of Treatment: Order Information: CHEST PA LAT 2 VWS. Accession Number: [id number]. CPT: 34296. INDICATION: Cough, green sputum and splinting. COMPARISON: Comparison is made with a prior chest x-ray study from July 15, 2018. TECHNIQUE: Dual-energy PA and lateral views of the chest were obtained. FINDINGS: The heart is within normal limits in size. Mediastinal and hilar contours. appear within normal limits. There appears to be an implantable cardiac monitoring device. The lungs are hyperinflated and clear. No pleural effusion is seen. IMPRESSION: NO EVIDENCE FOR ACTIVE CARDIOPULMONARY DISEASE. . <Electronically signed by Sukumar Zurita MD in OV> 09/16/18 7420. I discussed the x-ray report and the rapid strep and the influenza's with the patient. Patient is immunocompromised and she's having chest congestion therefore we will treat with antibiotics accommodation of days azithromycin and Augmentin. Patient knows that if she gets worse she is to get reevaluated right away most likely in the emergency department. - Differential Dx/Diagnosis Provider Diagnosis: Bronchitis, Immunocompromised state due to drug therapy Discharge - Sign-Out/Discharge Documenting (check all that apply): Patient Departure All imaging exams completed and their final reports reviewed: Yes - Discharge Plan Condition: Stable Disposition: HOME Prescriptions: Amoxicillin/Clavulanate TAB* [Augmentin TAB 875*] 875 mg PO BID #20 tab Azithromyxin BUDDY (NF) [Z-Buddy (Zithromax) 250 mg tabs #6] 2 tab PO .TODAY, THEN 1 DAILY #6 tab Patient Education Materials: Acute Bronchitis (ED) Referrals: Trinity Orellana MD [Primary Care Provider] - Molly Hooker MD [Medical Doctor] - Additional Instructions: FOLLOW UP WITH YOUR DOCTOR. GET RECHECKED FOR ANY WORSENING OF YOUR CONDITION OR QUESTIONS OR CONCERNS. - Billing Disposition and Condition Condition: STABLE Disposition: Home
== END 2018-09-16 18:27 | disposition home or self-care (01) ==
LOC: UCEAST 16:39
DX: J40 Bronchitis, not specified as acute or chronic (principal); T45.1X5A Adverse effect of antineoplastic and immunosuppressive drugs, initial encounter; Y92.9 Unspecified place or not applicable; Z88.8 Allergy status to other drugs, medicaments and biological substances; Z88.1 Allergy status to other antibiotic agents
CPT/HCPCS: 71046; 87651; 99212; G0463

== ENCOUNTER 2018-10-01 17:02 | Emergency (ER) | payer BC ==
--- OUTSIDE RECORDS SUMMARY | 2018-10-01 17:07 | XMS REPORT | Continuity of Care Document ---
:1980 External Reference #:[id number] Author Name Autumn Arevalo Care Team Providers Name Role Phone Trinity Orellana M.D. Primary Care Physician Unavailable Payers Type Date Identification Numbers Payment Provider Subscriber Expires: 2018 Policy Number: [id number] [employer] Insurance Wanda Ochoa PayID: [id number] [address] [place] [address] Policy Number: [id number] [employer] Zenaida Ochoa PayID: [id number] [address] [address] [place] [address] Advance Directives Description No Information Available Problems Description No Information Family History Date Family Member(s) Problem(s) Comments Father Lewy Body Disease, Ra Mother Cancer Social History Type Date Description Comments Sex Unknown Marital Status Lives With Lives With Daughter 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, 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, 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 Tobacco Use Start: Unknown Never Smoked Cigarettes Smoking Status Reviewed: 09/18/18 Never Smoked Cigarettes ETOH Use Denies alcohol [...] Form Strength Qnty SIG Indications Ordering Provider Flonase 09/18/ Active Suspension 50mcg/Act 9.900m 2 sprays J01.90 [facility] Allergy Relief 2017 l in each courtney Orellana MD twice a day Alavert 08/25/ Active Tablets ER 5-120mg [facility] Allergy/Sinus 2017 12HR MD Reyna Orencanalisa 08/25/ Active Solution Rec 250mg every 4 Other 2018 weeks Ordering Provider Ondansetron / Active Tablets 4mg dissolve Unknown 0000 Dispers one tablet orally every 8 hours as needed for nausea. Mirena (52 MG) / Active IUD 20mcg/24HR Unknown 0000 Ketorolac / Active Tablets 10mg take 1 by Unknown Tromethamine 0000 mouth every 8 hours as needed for migraine. take with food. Tylenol 8 Hour / Active Tablets ER 650mg 1 by Unknown Arthritis Pain 0000 mouth Multi For Her / Active Tablets once a Unknown 0000 day Calcium / Active Chewtabs Unknown 0000 Probiotic / Active Capsules 1 by Unknown Daily 0000 mouth every day Immunizations Description No Information Available Vital Signs Date Vital Result Comment 09/18/2018 10:16am Height 67 inches 5'7" Weight 123.25 lb Heart Rate 84 /min BP Systolic 118 mmHg BP Diastolic 68 mmHg Body Temperature 98.0 F O2 % BldC Oximetry 98 % BMI (Body Mass Index) 19.3 kg/m2 08/25/2018 3:12pm Height 67 inches 5'7" Weight 127.00 lb Heart Rate 96 /min BP Systolic 100 mmHg BP Diastolic 62 mmHg O2 % BldC Oximetry 96 % BMI (Body Mass Index) 19.9 kg/m2 Results Test Date Facility Test Result H/L Range Note Rapid Influenza 09/16/2018 [facility] Influenza A NEGATIVE Negative 1 A & B Molecular [address] [place] [address] [phone] Influenza B Molecular NEGATIVE Negative Laboratory test 09/16/2018 [facility] Rapid Strep Negative Negative 2 finding [address] [place] [place] [address] [phone] Rewriter: [id number] Rewriter: [id number] Procedures Date Code Description Status 08/07/2016 53233 Holter Monitor Review (24 hr)dr farley & interp only Completed Encounters Type Date Location Provider Dx Diagnosis Office Visit 08/25/2018 [facility] Director Internal Trinity Orellana MD R06.02 Shortness of 3:20p Medicine - [address] E04.9 Nontoxic goiter, unspecified F41.9 Anxiety disorder, unspecified Plan of Treatment 09/18/2018 - Trinity Orellana MDJ01.90 Acute sinusitis, unspecifiedNew Medication: Flonase Allergy Relief 50 mcg/Act - 2 sprays in each nostril twice a dayComments :I would advise you to take over the counter Mucinex and to use saline nasal spray to help clear yoursinuses. Finish the z-pack, do NOT take the fwpieapqzagA08.02 Shortness of breath
[2018-10-01 17:23] VITALS: BP 108/66
--- NOTE | 2018-10-01 18:14 | UC ---
UC General HPI - HPI Summary HPI Summary: 37 YO WF p/w white tongue discoloration x 2-3 days. States she thought it was thrush but drank alot of tea which may have discolored her tongue. She is on abatacept (Orencia) infusions for her RA which is DMARD and immunosuppressive. She is also s/p hernia repair surgery. 1 week ago and c/o persistent exertional SOB but no other complaints. - History of Current Complaint Chief Complaint: UCAllergicReaction Stated Complaint: MOUTH COMPLAINT Time Seen by Provider: 10/01/18 17:16 Hx Obtained From: Patient Hx Last Menstrual Period: unk Onset/Duration: Sudden Onset, Lasting Days Onset Severity: Moderate Current Severity: Moderate Pain Intensity: 2 - Allergy/Home Medications Allergies/Adverse Reactions: Allergies Allergy/AdvReac Type Severity Reaction Status Date / Time ceftazidime Allergy Severe Anaphylatic Verified 10/01/18 17:16 Shock ephedrine Allergy Severe Palpitation Verified 10/01/18 17:16 s metoclopramide [From Reglan] Allergy Severe Rash Verified 10/01/18 17:16 prochlorperazine Allergy Severe Anxiety Verified 10/01/18 17:16 [From Compazine] pseudoephedrine Allergy Severe Palpitation Verified 10/01/18 17:16 s Sulfa (Sulfonamide Allergy Severe Numbness Verified 10/01/18 17:16 Antibiotics) And Tingling tramadol [From Ultram] Allergy Severe Anxiety Verified 10/01/18 17:16 PMH/Surg Hx/FS Hx/Imm Hx Previously Healthy: No - h/o RA - Surgical History Surgical History: Yes Surgery Procedure, Year, and Place: Ovarian cyst removal, gallbladder removal, C -section endo ,hernia - Family History Known Family History: Negative: Hypertension - Social History Alcohol Use: Rare Substance Use Type: None Smoking Status (MU): Never Smoked Tobacco Review of Systems All Other Systems Reviewed And Are Negative: Yes Constitutional: Positive: Negative Skin: Positive: Negative Eyes: Positive: Negative ENT: Positive: Other - tongue discoloration Respiratory: Positive: Negative Cardiovascular: Positive: Negative Gastrointestinal: Positive: Negative Genitourinary: Positive: Negative Motor: Positive: Negative Neurovascular: Positive: Negative Musculoskeletal: Positive: Negative Neurological: Positive: Negative Psychological: Positive: Negative Physical Exam - Summary Physical Exam Summary: Vital Signs Reviewed: Yes Skin: Positive: Warm Head/Face: Positive: Normal Head/Face Inspection Eyes: Positive: Normal ENT: Positive: thrush on tongue with yellow discoloration Neck: Positive: Supple Respiratory/Lung Sounds: Positive: Clear to Auscultation Cardiovascular: Positive: Normal, RRR, S1, S2 Abdomen Description: Positive: Nontender Musculoskeletal: Positive: Normal Neurological: Positive: Normal Psychiatric: Positive: Normal, Affect/Mood Appropriate Vital Signs: Initial Vital Signs Temp 37.3 C 10/01/18 17:17 Pulse 85 10/01/18 17:17 Resp 17 10/01/18 17:17 BP 108/66 10/01/18 17:17 Pulse Ox 98 10/01/18 17:17 Course/Dx - Course Course Of Treatment: Oral thrush- Nystatin as directed. SOB- s/p hernia repair surgery 1 week ago - EKG done here was WNL, advised pt to go to ED for further eval for r/o PE if exertional dyspnea continues - Diagnoses Provider Diagnosis: Oral thrush, SOB (shortness of breath) Discharge - Sign-Out/Discharge Documenting (check all that apply): Patient Departure All imaging exams completed and their final reports reviewed: Yes - Discharge Plan Condition: Stable Disposition: HOME Prescriptions: Nystatin SUSPENSION* 100,000 unit SWISH SPIT TID 7 Days [facility] [place] Patient Education Materials: Oral Candidiasis (ED), Dyspnea (ED) Referrals: Trinity Orellana MD [Primary Care Provider] - Additional Instructions: GO TO ER IF SYMPTOMS IF SHORTNESS OF BREATH CONTINUES TO MAKE SURE IT IS NOT CAUSED BY BLOOD CLOT IN THE LUNGS - Billing Disposition and Condition Condition: STABLE Disposition: Home
== END 2018-10-01 18:05 | disposition home or self-care (01) ==
LOC: UCEAST 17:02
DX: B37.0 Candidal stomatitis (principal); R06.02 Shortness of breath; Z88.1 Allergy status to other antibiotic agents; Z88.8 Allergy status to other drugs, medicaments and biological substances; Z88.2 Allergy status to sulfonamides; Z88.6 Allergy status to analgesic agent
CPT/HCPCS: 93005; 99212; G0463

== ENCOUNTER 2018-10-22 17:19 | Emergency (ER) | payer BC ==
--- OUTSIDE RECORDS SUMMARY | 2018-10-22 17:24 | XMS REPORT | Continuity of Care Document ---
:1980 External Reference #:[id number] Author Name Beverly Nuñez O.D. Address [address] [place] [address] Care Team Providers Name Role Phone Trinity Orellana MD Primary Care Physician Unavailable Payers Type Date Identification Numbers Payment Provider Subscriber Policy Number: [id number] [employer] Wanda Ochoa PayID: [id number] [address] [place] [address] Advance Directives Description No Information Available Problems Date Description Provider Status Onset: Hypoglycemia Active Onset: Endometriosis (clinical) Active Onset: Cyst of ovary Active Onset: Chronic interstitial cystitis Active Onset: Ankylosing spondylitis Active Onset: Gastroparesis syndrome Active Onset: Migraine Active Onset: Seasonal allergy Active Onset: Rosacea Active Onset: 07/13/2016 Myopia Beverly Nuñez O.D. Active Onset: 07/13/2016 Regular astigmatism Beverly Nuñez O.D. Active Onset: 09/27/2017 Migraine with aura Beverly Nuñez O.D. 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 Work Status Full-Time Employment ETOH Use Denies alcohol use Tobacco Use Start: Unknown Patient has never smoked Recreational Drug Use Denies Drug Use Smoking Status Reviewed: 10/03/18 Patient has never smoked Allergies, Adverse Reactions, Alerts Date Description Reaction Status Severity Comments 07/13/2016 Sulfa Antibiotics Active 07/13/2016 Tramadol Active 07/13/2016 Compazine Active 07/13/2016 Reglan Active 07/13/2016 Sudafed Active 07/13/2016 Fortaz Active Medications Medication Date Status Form Strength Qnty SIG Indications Ordering Provider Zofran 00// Active Tablets 4mg as needed Unknown 0000 Ketorolac / Active Tablets 10mg Blegen, Tromethamine 0000 Rosalinda Harley Orencia / Active Soln 50mg/0.4ML (infusion/d Unknown 0000 Prefill [place] Syringe changes depending on weight) Tylenol 8 Hour / Active Tablets ER 650mg as needed Unknown 0000 Probiotic / Active Capsules Unknown 0000 Multi Vitamin / Active Tablets Unknown 0000 Calcium 500 + / Active Chewtabs 250-500mg- Unknown D3 0000 Unit Benadryl / Active Capsules 25mg as needed Unknown Allergy 0000 Estradiol / Hx Tablets 3mg every day Unknown 0000 - 2017 Remicade / Hx Solution 100mg Unknown 0000 - Rec 2017 Prednisone / Hx Tablets 5mg Take One Unknown 0000 - Tablet By 10/01/ Mouth Every 2018 Day Immunizations Description No Information Available Vital Signs Description No Information Available Results Description No Information Available Procedures Date Code Description Status 09/27/2017 95214 Est Patient Comprehensive Exam Completed 07/13/2016 41112 New Patient Comprehensive Exam Completed Encounters Description No Information Available Plan of Treatment 10/03/2018 - Beverly Nuñez O.D.H52.13 Myopia, bilateralComments:Smoking can increase the risk of developing or worsening any eye related disease, as well as affect your overall health. If you are a smoker, we strongly recommend that you quit.If you are not a smoker, we strongly recommend that you do not start. You have Myopia, or near sightedness. I have given you a prescription for glasses.Follow up:1 Year Follow Up You can expect to have your eyes dilated at your next visit. If Dr. Nuñze orders any additional testing, it may require extra time. We recommend that you bring sunglasses, as dilation drops often make you light sensitive until they wear off. We always recommend you bring someone to drive you home if you are uncomfortable driving with your eyes dilated. If you have any questions before your next visit, feel free to call our office at .H52.223 Regular astigmatism, bilateralComments :You have an astigmatism. Astigmatism is a common vision condition that happens when a person's cornea is not symmetrical. Dr. Nuñez has given you a prescription to correct for this.G43.101 Migraine with aura, not intractable, with status migrainosus
[2018-10-22 17:32] VITALS: BP 105/64
--- NOTE | 2018-10-22 17:59 | UC ---
Skin Complaint HPI - HPI Summary HPI Summary: 38 y/o female prese - History of Current Complaint Chief Complaint: UCGeneralIllness Time Seen by Provider: 10/22/18 17:30 Stated Complaint: BLISTERS IN MOUTH Hx Obtained From: Patient Hx Last Menstrual Period: unk Onset/Duration: Gradual Onset, Lasting Hours - 6hrs, Still Present Skin Exposure Onset/Duration: Hours Ago - 6hrs Onset Severity: Mild Current Severity: Mild Pain Intensity: 2 Pain Scale Used: 0-10 Numeric Location: Discrete - on palate and corner of lip Character: Pain - mild, Redness Aggravating Factor(s): Touch Alleviating Factor(s): Nothing Associated Signs & Symptoms: Positive: Rash - lip and palate, Tenderness. Negative: Nausea, Vomiting, Fever, Chills, Drainage Related History: Other: - Hx of herpes I - Allergy/Home Medications Allergies/Adverse Reactions: Allergies Allergy/AdvReac Type Severity Reaction Status Date / Time ceftazidime Allergy Severe Anaphylatic Verified 10/22/18 17:32 Shock ephedrine Allergy Severe Palpitation Verified 10/22/18 17:32 s metoclopramide [From Reglan] Allergy Severe Rash Verified 10/22/18 17:32 prochlorperazine Allergy Severe Anxiety Verified 10/22/18 17:32 [From Compazine] pseudoephedrine Allergy Severe Palpitation Verified 10/22/18 17:32 s Sulfa (Sulfonamide Allergy Severe Numbness Verified 10/22/18 17:32 Antibiotics) And Tingling tramadol [From Ultram] Allergy Severe Anxiety Verified 10/22/18 17:32 Home Medications: Home Medications Calcium Carbonate/Vitamin D3 [Calcium 500 mg Chewable Tablet] 1,250 mg PO DAILY 10/22/18 [History Confirmed 10/22/18] L.acidoph,Paracasei, B.lactis [Probiotic] 1 cap PO DAILY 10/22/18 [History Confirmed 10/22/18] Multivitamin [Multivitamins] 1 cap PO DAILY 10/22/18 [History Confirmed 10/22/18 ] PMH/Surg Hx/FS Hx/Imm Hx - Surgical History Surgical History: Yes Surgery Procedure, Year, and Place: Ovarian cyst removal, gallbladder removal, C -section endo, hernia repair 09/23 - Family History Known Family History: Negative: Hypertension - Social History Alcohol Use: Rare Substance Use Type: None Smoking Status (MU): Never Smoked Tobacco Physical Exam Vital Signs: Initial Vital Signs Temp 99.1 F 10/22/18 17:27 Pulse 83 10/22/18 17:27 Resp 16 10/22/18 17:27 BP 105/64 10/22/18 17:27 Pulse Ox 100 10/22/18 17:27 Discharge - Discharge Plan Condition: Stable Disposition: HOME Prescriptions: Lidocaine 2% VISCOUS* [Xylocaine 2% Viscous*] 15 ml SWISH SPIT Q4H PRN #1 btl PRN Reason: Pain ValACYclovir (*) [Valtrex 1 GM(*)] 2 gm PO BID #4 tab Patient Education Materials: Oral Herpes Simplex Virus Infections (ED) Referrals: Trinity Orellana MD [Primary Care Provider] - 3 Days Additional Instructions: 1- Please take Valtrex PO as directed to alleviate symptoms 2-Please take ibuprofen PO q6-8hrs prn as instructed after meals to alleviate pain and swelling. Increase fluid intake, eat well, rest and avoid strenuous exercise 3-Take Viscous Lidocaine as directed to alleviate pain 4-If symptoms do not improve or worsen please return to the urgent care or f/u with your PCP in 3 days for further evaluation and treatment. - Billing Disposition and Condition Condition: STABLE Disposition: Home
== END 2018-10-22 18:24 | disposition home or self-care (01) ==
LOC: UCEAST 17:19
DX: B00.9 Herpesviral infection, unspecified (principal); Z88.5 Allergy status to narcotic agent; Z88.2 Allergy status to sulfonamides; Z88.8 Allergy status to other drugs, medicaments and biological substances
CPT/HCPCS: 99212; G0463

== ENCOUNTER 2018-11-24 03:31 | Emergency (ER) | payer BC ==
[2018-11-24] MEDS ORDERED: NS 0.9% 1000 ML** 2,000 ML IV ONE (03:47)
[2018-11-24] MEDS ORDERED: Diphenoxylat/Atrop 2.5-0.025M* 1 TAB PO ONE (03:48)
[2018-11-24] MEDS ORDERED: Ondansetron INJ* 2 MG/ML VIAL IV ONE (03:48)
[2018-11-24] MEDS ORDERED: Pantoprazole IV* 40 MG IV ONE (03:48)
--- NOTE | 2018-11-24 03:50 | ED ---
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 The patient rates the pain 0/10 in severity. Nausea aggravated by lying flat. Symptoms alleviated by nothing. Patient reports light-headedness, palpitations, and intermittent fever. - History Of Current Complaint Chief Complaint: EDDizziness Time Seen by Provider: 11/24/18 03:39 Hx Obtained From: Patient Onset/Duration: Sudden Onset, Lasting Minutes, Still Present Timing: Constant, Minutes Severity Currently: None Aggravating Factor(s): lying flat makes nausea worse Alleviating Factor(s): nothing Associated Signs And Symptoms: Positive: Palpitations, Nausea, Vomiting, Diarrhea, Abdominal Pain - cramping, Fever - Allergies/Home Medications Allergies/Adverse Reactions: Allergies Allergy/AdvReac Type Severity Reaction Status Date / Time ceftazidime Allergy Severe Anaphylatic Verified 11/11/18 09:12 Shock ephedrine Allergy Severe Palpitation Verified 11/11/18 09:12 s metoclopramide [From Reglan] Allergy Severe Rash Verified 11/11/18 09:12 prochlorperazine Allergy Severe Anxiety Verified 11/11/18 09:12 [From Compazine] pseudoephedrine Allergy Severe Palpitation Verified 11/11/18 09:12 s Sulfa (Sulfonamide Allergy Severe Numbness Verified 11/11/18 09:12 Antibiotics) And Tingling tramadol [From Ultram] Allergy Severe Anxiety Verified 11/11/18 09:12 PMH/Surg Hx/FS Hx/Imm Hx Endocrine/Hematology History: Denies: Hx Diabetes, Hx Thyroid Disease - being evaluated Cardiovascular History: Reports: Other Cardiovascular Problems/Disorders - VENTRICULAR TACHYCARDIA. LOOP RECORDER. Denies: Hx Hypertension Respiratory History: Denies: Hx Asthma, Hx Chronic Obstructive Pulmonary Disease (COPD) GI History: Reports: Other GI Disorders - Gastroparesis, endometriosis Denies: Hx Ulcer History: Denies: Hx Renal Disease Musculoskeletal History: Reports: Hx Scoliosis Neurological History: Reports: Hx Headaches - MIGRAINS, Other Neuro Impairments/ Disorders - ANKYLOSIS SPOND - Surgical History Surgery Procedure, Year, and Place: Ovarian cyst removal, gallbladder removal, C -section endo, hernia repair 09/2018 Infectious Disease History: No Infectious Disease History: Reports: History Other Infectious Disease - pertussis Denies: Hx Hepatitis, Hx Human Immunodeficiency Virus (HIV), Traveled Outside the [place] in Last 30 Days - Family History Known Family History: Positive: Hypertension - Social History Alcohol Use: Rare Substance Use Type: Reports: None Hx Tobacco Use: No Smoking Status (MU): Never Smoked Tobacco Review of Systems Positive: Fever - intermittent Positive: Palpitations Positive: Abdominal Pain - cramping, Vomiting, Diarrhea, Nausea Neurological: Other - light-headedness All Other Systems Reviewed And Are Negative: Yes Physical Exam - Summary Physical Exam Summary: VITAL SIGNS: Reviewed. GENERAL: Patient is a well-developed and nourished FEMALE who is lying comfortable in the stretcher. Patient is not in any acute respiratory distress. HEAD AND FACE: No signs of trauma. No ecchymosis, hematomas or skull depressions. No sinus tenderness. EYES: PERRLA, EOMI x 2, No injected conjunctiva, no nystagmus. EARS: Hearing grossly intact. Ear canals and tympanic membranes are within normal limits. MOUTH: Oropharynx within normal limits. NECK: Supple, trachea is midline, no adenopathy, no JVD, no carotid bruit, no c- spine tenderness, neck with full ROM. CHEST: Symmetric, no tenderness at palpation LUNGS: Clear to auscultation bilaterally. No wheezing or crackles. CVS: Regular rate and rhythm, S1 and S2 present, no murmurs or gallops appreciated. ABDOMEN: Soft, non-tender. No signs of distention. No rebound no guarding, and no masses palpated. Hyperactive bowel sounds. EXTREMITIES: FROM in all major joints, no edema, no cyanosis or clubbing. NEURO: Alert and oriented x 3. No acute neurological deficits. Speech is normal and follows commands. SKIN: Dry and warm Triage Information Reviewed: Yes Vital Signs On Initial Exam: Initial Vitals Temp Pulse Resp BP Pulse Ox 98 F 88 16 118/67 99 11/24/18 03:32 11/24/18 03:32 11/24/18 03:32 11/24/18 03:32 11/24/18 03:32 Vital Signs Reviewed: Yes Diagnostics - Vital Signs Vital Signs Temp Pulse Resp BP Pulse Ox 11/24/18 03:32 98 F 88 16 118/67 99 - Laboratory Result Diagrams: 11/24/18 04:02 11/24/18 04:02 Lab Statement: Any lab studies that have been ordered have been reviewed, and results considered in the medical decision making process. Re-Evaluation - Re-Evaluation First Eval Re-Evaluation Time: 05:03 Change: Improved Comment: Patient is feeling better. 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 This patient will be discharged with dx of gastroenteritis and food poisoning. Patient understands and agrees with this plan. - Diagnoses Differential Diagnoses/HQI/PQRI: Other - Gastroenteritis and Food poisoning Provider Diagnoses: Gastroenteritis, Food poisoning Discharge - Sign-Out/Discharge Documenting (check all that apply): Patient Departure - discharge Patient Received Moderate/Deep Sedation with Procedure: No - Discharge Plan Condition: Stable Disposition: HOME Prescriptions: Dicyclomine CAP* [Bentyl CAP*] 10 mg PO TID PRN #14 cap MDD 3 PRN Reason: Pain - Abdominal Diphenoxylat/Atrop 2.5-0.025M* [Lomotil TAB*] 1 tab PO QID PRN #14 tab MDD 4 PRN Reason: Diarrhea Ondansetron ODT TAB* [Zofran 4 MG Odt TAB*] 8 mg PO Q6H PRN #20 tab.odt PRN Reason: Nausea/Vomiting Patient Education Materials: Gastroenteritis (ED), Food Poisoning (ED) Referrals: Trinity Orellana MD [Primary Care Provider] - (Follow up in 1-2 days.) Additional Instructions: RETURN TO THE EMERGENCY DEPARTMENT FOR CHANGING OR WORSENING SYMPTOMS. FOLLOW UP WITH PCP IN 1-2 DAYS. - Attestation Statements Document Initiated by Scribe: Yes Documenting Scribe: Edgardo Modi Provider For Whom Scribe is Documenting (Include Credential): Corazon Sunshine MD Scribe Attestation: Edgardo Javier, minaibed for Corazon Sunshine MD on 11/24/18 at 0555. Status of Scribe Document: Ready
[2018-11-24 04:09] LABS: ABS Basophils 0 10^3/ul (0-0.2); ABS Eosinophils 0.1 10^3/ul (0-0.6); ABS Lymphocytes 0.7 10^3/ul (1.0-4.8); ABS Monocytes 0.6 10^3/ul (0-0.8); ABS Neutrophils 11.7 10^3/ul (1.5-7.7); ABS Nucleated RBC 0 10^3/ul; Eosinophil % 0.4 %; Hematocrit 44 % (35-47); Hemoglobin 14.6 g/dl (12.0-16.0); Lymphocyte % 5.2 %; Mean Corpuscular HGB Conc 33 g/dl (31-36); Mean Corpuscular Hemoglobin 30 pg (27-31); Mean Corpuscular Volume 91 fL (80-97); Mean Platelet Volume 7.6 fL (7.4-10.4); Nucleated Red Blood Cells % 0; Platelet Count 314 10^3/ul (150-450); Red Blood Count 4.86 10^6/ul (4.00-5.40); Red Cell Distribution Width 13 % (10.5-15); White Blood Count 13.1 10^3/ul (3.5-10.8)
[2018-11-24 04:26] LABS: ALT 22 U/L (7-52); AST 20 U/L (13-39); Albumin 4.4 g/dL (3.2-5.2); Albumin/Globulin Ratio 1.3 (1-3); Alkaline Phosphatase 55 U/L (34-104); Amylase 38 U/L (29-103); Anion Gap 5 mmol/L (2-11); BUN/Creatinine Ratio 18.7 (8-20); Blood Urea Nitrogen 14 mg/dL (6-24); C Reactive Protein 2.93 mg/L (<8.01); CO2 Carbon Dioxide 24 mmol/L (22-32); Calcium 8.4 mg/dL (8.6-10.3); Chloride 107 mmol/L (101-111); EGFR African American 103.6 (>60); EGFR Non-African American 85.6 (>60); Globulin 3.4 g/dL (2-4); Glucose 107 mg/dL (70-100); Magnesium 2.2 mg/dL (1.9-2.7); Potassium 4.1 mmol/L (3.5-5.0); Sodium 136 mmol/L (135-145); Total Protein 7.8 g/dL (6.4-8.9)
[2018-11-24 04:32] LABS: HCG Pregnancy < 0.60 mIU/mL
[2018-11-24 04:47] LABS: T4, Total 6.29 g/dL (6.09-12.23)
[2018-11-24 04:49] LABS: TSH (Thyroid Stimulating Horm) 1.07 mcIU/mL (0.34-5.60)
[2018-11-24 04:52] LABS: Free T3 4.2 pg/mL (2.5-3.9); Free T4 0.95 ng/dL (0.61-1.12)
[2018-11-24] MEDS ORDERED: DICYCLOMINE HCL* 20 MG/2 ML VIAL IM ONE (05:03)
[2018-11-24] MEDS ORDERED: Promethazine TAB* 25 MG PO ONE (05:05)
[2018-11-24 06:00] LABS: Urine Appearance Cloudy; Urine Bacteria 1+ (Absent); Urine Bilirubin Negative (Negative); Urine Blood 1+ (Negative); Urine Color Yellow; Urine Glucose Negative (Negative); Urine Ketones Trace (Negative); Urine Nitrite Negative (Negative); Urine Protein Negative (Negative); Urine Red Blood Cell 1+(3-5/hpf) (Absent); Urine Squamous Epithelial Cell Present (Absent); Urine Urobilinogen Negative (Negative); Urine White Blood Cell Trace(0-5/hpf) (Absent)
[2018-11-24 06:16] VITALS: BP 113/77
== END 2018-11-24 06:15 | disposition home or self-care (01) ==
LOC: ED 03:31
DX: K52.9 Noninfective gastroenteritis and colitis, unspecified (principal); T62.91XA Toxic effect of unspecified noxious substance eaten as food, accidental (unintentional), initial encounter; Y92.9 Unspecified place or not applicable; Z88.2 Allergy status to sulfonamides
CPT/HCPCS: 36415; 80053; 81003; 81015; 82150; 83690; 83735; 84436; 84439; 84443; 84479; 84481; 84702; 85025; 86140; 87086; 96361; 96372; 96374; 96375; 99284; A9270-GY; J0500; J2405

== ENCOUNTER 2018-12-29 16:45 | Emergency (ER) | payer BC ==
--- OUTSIDE RECORDS SUMMARY | 2018-12-29 16:51 | XMS REPORT | Continuity of Care Document ---
:1980 External Reference #:[id number] Author Name Rosalba Martins Care Team Providers Name Role Phone Trinity Orellana M.D. Primary Care Physician Unavailable Payers Date Identification Numbers Payment Provider Subscriber Expires: 2018 Policy Number: [id number] [employer] Wanda Ochoa PayID: [id number] [address] [place] [address] Policy Number: [id number] [employer] Zenaida Ochoa PayID: [id number] [address] [address] [place] Morales [address] Advance Directives Description No Information Available Problems Description No Information Family History Date Family Member(s) Observation Comments Father Lewy Body Disease, Ra Mother Cancer Social History Type Date Description Comments Sex Unknown Marital Status Lives With Lives With Daughter 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, [employer] Tobacco Use Start: Unknown Never Smoked Cigarettes Smoking Status Reviewed: 11/26/18 Never Smoked Cigarettes ETOH Use Denies alcohol [...] Form Strength Qnty SIG Indications Ordering Provider Nexium 11/26/ Active Capsules DR 40mg 30caps 1 by 2018 mouth Ordering daily Provider with dinner Famotidine 11/26/ Active Tablets 40mg 30tabs one by 2018 mouth Orellana, every day at bedtime Ventolin HFA 11/07/ Active Aerosol 108(90Base 8gm 2 by J45.909 2018 ) mcg/Act mouth Orellana, every 4 MD hours as needed Valacyclovir 11/07/ Active Tablets 1gm 30tabs 1 by Trinity HCL 2019 mouth 2 Orellana, times a MD day as needed Orencia 08/25/ Active Solution Rec 250mg every 4 [...] by Unknown Daily 0000 mouth every day Flonase 09/18/ Hx Suspension 50mcg/Act 9.900m 11/07/18 J01.90 Trinity Allergy Relief 2018 - l reports Reyna, 11/25/ not MD 2018 taking. 2 sprays in each nostril twice a day Alavert 08/25/ Hx Tablets ER 5-120mg Trinity Allergy/Sinus 2017 - 12HR Reyna, 11/27/ 2019 Immunizations Description No Information Available Vital Signs Date Vital Result Comment 11/26/2018 2:26pm Height 67 inches 5'7" Weight 123.38 lb Heart Rate 81 /min BP Systolic Sitting 100 mmHg re g adult cuff left arm BP Diastolic Sitting 80 mmHg re g adult cuff left arm Body Temperature 98.1 F O2 % BldC Oximetry 98 % at rest on room air BMI (Body Mass Index) 19.3 kg/m2 11/07/2018 4:25pm Height 67 inches 5'7" Weight 129.38 lb Heart Rate 85 /min BP Systolic 112 mmHg BP Diastolic 75 mmHg O2 % BldC Oximetry 98 % BMI (Body Mass Index) 20.3 kg/m2 09/18/2018 10:16am Height 67 inches 5'7" Weight [...] Result H/L Range Note CBC Auto Diff 11/24/2018 [facility] White Blood 13.1 10^3/uL High 3.5-10.[address] [place] [address] [phone] Red Blood Count 4.86 10^6/uL N 4.00-5.40 Hemoglobin 14.6 g/dL N 12.0-16.0 Hematocrit 44 % N 35-47 Mean Corpuscular Volume 91 fL N 80-97 Mean Corpuscular Hemoglobin 30 pg N 27-31 Mean Corpuscular HGB Conc 33 g/dL N 31-36 Red Cell Distribution Width 13 % N 10.5-15 Platelet Count 314 10^3/uL N 150-450 Mean Platelet Volume 7.6 fL N 7.4-10.4 Abs Neutrophils 11.7 10^3/uL High 1.5-7.7 Abs Lymphocytes 0.7 10^3/uL Low 1.0-4.8 Abs Monocytes 0.6 10^3/uL N 0-0.8 Abs Eosinophils 0.1 10^3/uL N 0-0.6 Abs Basophils 0 10^3/uL N 0-0.2 Abs Nucleated RBC 0 10^3/uL Granulocyte % 89.2 % Lymphocyte % 5.2 % Monocyte % 4.9 % Eosinophil % 0.4 % Basophil % 0.3 % Nucleated Red Blood Cells % 0 Comp Metabolic Panel 11/24/2018 [facility] Sodium 136 mmol/L N 135-[address] [place] [address] [phone] Potassium 4.1 mmol/L N 3.5-5.0 Chloride 107 mmol/L N 101-111 Co2 Carbon Dioxide 24 mmol/L N 22-32 Anion Gap 5 mmol/L N 2-11 Glucose 107 mg/dL High 70-100 Blood Urea Nitrogen 14 mg/dL N 6-24 Creatinine 0.75 mg/dL N 0.51-0.95 BUN/Creatinine Ratio 18.7 N 8-20 Calcium 8.4 mg/dL Low 8.6-10.3 Total Protein 7.8 g/dL N 6.4-8.9 Albumin 4.4 g/dL N 3.2-5.2 Globulin 3.4 g/dL N 2-4 Albumin/Globulin Ratio 1.3 N 1-3 Total Bilirubin 0.60 mg/dL N 0.2-1.0 Alkaline Phosphatase 55 U/L N 34-104 Alt 22 U/L N 7-52 Ast 20 U/L N 13-39 Egfr Non- 85.6 >60 Egfr 103.6 >60 1 Laboratory test 11/24/2018 [facility] Magnesium 2.2 mg/dL N 1.9-2.[address] [place] [address] [phone] Amylase 38 U/L N 29-103 Lipase 21 U/L N 11.0-82.0 C Reactive Protein 2.93 mg/L N <8.01 HCG < 0.60 mIU/mL 2 Urinalysis Profile 11/24/2018 [facility] [place] [address] [phone] Urine Appearance Cloudy Urine Specific [place] 1.010 N 1.010-1.030 Urine pH 5.0 N 5-9 Urine Urobilinogen Negative Negative Urine Ketones Trace Abnormal Negative Urine Protein Negative Negative Urine Leukocytes Negative Negative Urine Blood 1+ Abnormal Negative Urine Nitrite Negative Negative Urine Bilirubin Negative Negative Urine Glucose Negative Negative Urine White Blood Cell Trace(0-5/hpf) Absent Urine Red Blood Cell 1+(3-5/hpf) Abnormal Absent Urine Bacteria 1+ Abnormal Absent Urine Squamous Epithelial Cell Present Abnormal Absent Urine Culture And 11/24/2018 [facility] Urine Culture SEE RESULT [address] [place] [address] [phone] Laboratory test 11/24/2018 [facility] Thyroxine 6.29 ?g/dL N 6.09- finding [address] [place] [address] [phone] TSH (Thyroid Stim Horm) 1.07 mcIU/mL N 0.34-5.60 Free T4 (Free Thyroxine) 0.95 ng/dL N 0.61-1.12 T3 Free 4.20 pg/mL High 2.5-3.9 T3 Total 118 ng/dL N 87-178 Rapid Influenza 11/11/2018 [facility] Influenza A NEGATIVE Negative 4 A & B Molecular [address] [place] [address] [phone] Influenza B Molecular NEGATIVE Negative Rapid Influenza 09/16/2018 [facility] Influenza A NEGATIVE Negative 5 A & B Molecular [address] [place] [address] [phone] Influenza B Molecular NEGATIVE Negative Laboratory test 09/16/2018 [facility] Rapid Strep Negative Negative 6 finding [address] [place] [address] [phone] 1 Because ethnic data is not always readily [...] 15-29 5 Kidney failure <15 (or dialysis) 2 <5.0 Negative 5.0 - 25.0 Indeterminate (Repeat testing recommended after 72 hours) >25.0 Positive Perimenopausal women can display HCG levels of up to 20 mIU/mL 3 SEE RESULT BELOW Name: ZENAIDA OCHOA : [address]: Corazon Sunshine MD Acct: [id number] Unit: [id number] AGE: 38 Location: ED Re11/24/18 SEX: F Status: DEP ER SPEC: [id number] ELIZABETH: 11/24/18 [facility] DR: Corazon Sunshine MD REQ: [id number] RECD: 11/24/18 STATUS: THOR RABAGO DR: Trinity Orellana MD _ SOURCE: URINE SPDESC: ORDERED: Urine Culture Procedure Result Reported Site Urine Culture Final 11/25/18- 1118 ML No growth of clinically significant organisms * ML - Main Lab . END OF REPORT DEPARTMENT OF PATHOLOGY, [address] [place] [address] Pawan Winters M.D. Director [facility] # [id number] 4 [employer]er [employer]orescent Lights: [id number] Assembler Fluorescent Lights: [id number] 6 Assembler Fluorescent Lights: [id number] Procedures Date Code Description Status 10/16/2018 44048 Plethysmography Determination Lung Volumes & Per Airway Completed Resist 10/16/2018 05638 Pulmonary Function><Bronchodil Completed 08/07/2016 50448 Holter Monitor Review (24 hr)dr review & interp only Completed Encounters Type Date Location Provider Dx Diagnosis Office Visit 11/26/2018 Jose Armando Orellana, K52.9 Noninfective 2:20p Medicine - [place] gastroenteritis and [address] colitis, unspecified Office Visit 11/07/2018 Jose Armando Orellana, M26.603 Bilateral 4:00p Medicine Lazara VASQUEZ temporomandibular joint [place] disorder, unspecified J45.909 Unspecified asthma, uncomplicated E16.2 Hypoglycemia, unspecified N80.9 Endometriosis, unspecified Office Visit 09/18/2018 10:00a Jose Armando Orellana, J01.90 Acute sinusitis, Medicine - unspecified [place] [address] R06.02 Shortness of breath Office Visit 08/25/2018 3:20p Jose Armando Orellana MD R06.02 Shortness of Medicine - [place] breath [address] E04.9 Nontoxic goiter, unspecified F41.9 Anxiety disorder, unspecified Plan of Treatment No Information Available
--- NOTE | 2018-12-29 16:52 | UC ---
Throat Pain/Nasal Ko HPI - HPI Summary HPI Summary: 38 yo female presents with sinus pain/pressure/congestion and post nasal drip for the last 4-5 days. She tells me that she has a history of sinus infections and this feels the same. She has been having green/yellow nasal discharge. Has been using flonase and taking allergy medicine OTC with no relief. Denies fever , chills, sore throat, cough. - History of Current Complaint Stated Complaint: SINUS COMPLAINT Time Seen by Provider: 12/29/18 16:50 Hx Obtained From: Patient Hx Last Menstrual Period: no period - mirena IUD Onset/Duration: Gradual Onset Severity: Moderate Pain Intensity: 7 Pain Scale Used: 0-10 Numeric - Allergies/Home Medications Allergies/Adverse Reactions: Allergies Allergy/AdvReac Type Severity Reaction Status Date / Time ceftazidime Allergy Severe Anaphylatic Verified 12/29/18 16:55 Shock ephedrine Allergy Severe Palpitation Verified 12/29/18 16:55 s metoclopramide [From Reglan] Allergy Severe Rash Verified 12/29/18 16:55 prochlorperazine Allergy Severe Anxiety Verified 12/29/18 16:55 [From Compazine] pseudoephedrine Allergy Severe Palpitation Verified 12/29/18 16:55 s Sulfa (Sulfonamide Allergy Severe Numbness Verified 12/29/18 16:55 Antibiotics) And Tingling tramadol [From [facility]] Allergy Severe Anxiety Verified 12/29/18 16:55 Home Medications: Home Medications Acetaminophen [Mapap] 1,000 mg PO ONCE PRN 12/29/18 [History Confirmed 12/29/18] PMH/Surg Hx/FS Hx/Imm Hx - Additional Past Medical History Additional PMH: IBS Rheumatoid Arthritis Seasonal allergies Migraines Endometriosis - Surgical History Surgical History: Yes Surgery Procedure, Year, and Place: Ovarian cyst removal, gallbladder removal, C -section endo, hernia repair 09/2018 - Family History Known Family History: Positive: Hypertension - Social History Occupation: Employed Full-time Lives: With Family Alcohol Use: Rare Substance Use Type: None Smoking Status (MU): Never Smoked Tobacco Review of Systems All Other Systems Reviewed And Are Negative: Yes Constitutional: Positive: Negative Skin: Positive: Negative Eyes: Positive: Negative ENT: Positive: Nasal Discharge, Sinus Congestion, Sinus Pain/Tenderness Respiratory: Positive: Negative Cardiovascular: Positive: Negative Gastrointestinal: Positive: Negative Neurovascular: Positive: Negative Neurological: Positive: Negative Psychological: Positive: Negative Physical Exam - Summary Physical Exam Summary: GENERAL: NAD. WDWN. No pain distress. SKIN: No rashes, sores, lesions, or open wounds. HEENT: Head: AT/NC Eyes: EOM intact. Conjunctiva clear without inflammation or discharge. Ears: Hearing grossly normal. TMs intact, no bulging, erythema, or edema. Nose: Nasal mucosa mildly swollen and erythematous with yellow discharge. TTP maxillary and frontal sinus. Positive post nasal drip Throat: Posterior oropharynx without exudates, erythema, or tonsillar enlargement. Uvula midline. NECK: Supple. Nontender. No lymphadenopathy. CHEST: CTAB. No r/r/w. No accessory muscle use. Breathing comfortably and in no distress. CV: RRR. Without m/r/g. Pulses intact. NEURO: Alert. PSYCH: Age appropriate behavior. Triage Information Reviewed: Yes Vital Signs: Vital Signs: Temp Pulse Resp BP Pulse Ox 98.5 F 79 18 101/61 100 12/29/18 16:49 12/29/18 16:49 12/29/18 16:49 12/29/18 16:49 12/29/18 16:49 Vital Signs Reviewed: Yes Throat Pain/Nasal Course/Dx - Course Course Of Treatment: Sinusitis. Given her current immunosuppressed status will rx for anbx at this time. - Differential Dx/Diagnosis Provider Diagnosis: Sinusitis Discharge - Sign-Out/Discharge Documenting (check all that apply): Patient Departure All imaging exams completed and their final reports reviewed: No Studies - Discharge Plan Condition: Stable Disposition: HOME Prescriptions: Azithromycin TAB* [Zithromax TAB (Z-PORTER) 250 mg #6 tabs] 2 tab PO .TODAY, THEN 1 DAILY #1 porter Patient Education Materials: Sinusitis (ED) Referrals: Trinity Orellana MD [Primary Care Provider] - Additional Instructions: If you develop a fever, shortness of breath, chest pain, new or worsening symptoms - please call your PCP or go to the ED. - Billing Disposition and Condition Condition: STABLE Disposition: Home
[2018-12-29 16:54] VITALS: BP 101/61
== END 2018-12-29 17:21 | disposition home or self-care (01) ==
LOC: UCEAST 16:45
DX: J32.9 Chronic sinusitis, unspecified (principal); M06.9 Rheumatoid arthritis, unspecified; Z88.2 Allergy status to sulfonamides; Z88.1 Allergy status to other antibiotic agents; Z88.5 Allergy status to narcotic agent; Z88.8 Allergy status to other drugs, medicaments and biological substances
CPT/HCPCS: 99212; G0463

== ENCOUNTER 2019-01-06 16:27 | Emergency (ER) | payer BC ==
--- NOTE | 2019-01-06 18:14 | UC ---
Hand/Wrist HPI - HPI Summary HPI Summary: 38 y/o female presents to the urgent care c/o left middle finger pain and bruise s/p injury when a larger log fell on top of her finger Saturday. Pt reports she was picking up smaller pieces, but accidentally the big one hit her left middle finger. Pt states she has a bruise in the ventral side of her distal finger. Her mother splinted her finger, but she has noticed pain has worsen w/ decrease ROM. She has taken Ibuprofen and Tramadol to alleviate symptoms. Pt w/ Hx of RA. Pain now is mild /10. She also has Hx of herpes labialis and she has a sore for the pst 2 days in her right side of lower lip. Pt denies numbness or tingling sensation over her finger, fever, SOB, chest pain,abdominal pain, N/V/D. - History Of Current Complaint Chief Complaint: UCUpperExtremity Stated Complaint: FINGER INJURY Time Seen by Provider: 01/06/19 18:08 Hx Obtained From: Patient Hx Last Menstrual Period: iud ?: No Onset/Duration: Sudden Onset, Lasting Days - 4 days, Still Present, Worse Since - 2 days Severity Initially: Moderate Severity Currently: Moderate Pain Intensity: 2 Pain Scale Used: 0-10 Numeric Character Of Pain: Sharp - at touch Aggravating Factor(s): Movement, Lifting Alleviating Factor(s): Rest, Ice, OTC Meds Associated Signs And Symptoms: Positive: Bruising - at the distal finger. Negative: Swelling, Redness, Weakness, Numbness/Tingling Related History: Dominant Hand Right - Allergies/Home Medications Allergies/Adverse Reactions: Allergies Allergy/AdvReac Type Severity Reaction Status Date / Time ceftazidime Allergy Severe Anaphylatic Verified 01/06/19 16:34 Shock ephedrine Allergy Severe Palpitation Verified 01/06/19 16:34 s metoclopramide [From Reglan] Allergy Severe Rash Verified 01/06/19 16:34 prochlorperazine Allergy Severe Anxiety Verified 01/06/19 16:34 [From Compazine] pseudoephedrine Allergy Severe Palpitation Verified 01/06/19 16:34 s Sulfa (Sulfonamide Allergy Severe Numbness Verified 01/06/19 16:34 Antibiotics) And Tingling tramadol [From Ultram] Allergy Severe Anxiety Verified 01/06/19 16:34 PMH/Surg Hx/FS Hx/Imm Hx Previously Healthy: Yes Other Endocrine History: RA - Surgical History Surgical History: Yes Surgery Procedure, Year, and Place: Ovarian cyst removal, gallbladder removal, C -section endo, hernia repair 09/2018 - Family History Known Family History: Positive: Hypertension - Social History Occupation: Employed Full-time Lives: With Family Alcohol Use: Rare Substance Use Type: None Smoking Status (MU): Never Smoked Tobacco Review of Systems All Other Systems Reviewed And Are Negative: Yes Constitutional: Positive: Negative Skin: Positive: Bruising - ventral side of the LF middle finger s/p injury Eyes: Positive: Negative ENT: Positive: Negative Respiratory: Positive: Negative Cardiovascular: Positive: Negative Gastrointestinal: Positive: Negative Genitourinary: Positive: Negative Motor: Positive: Negative Neurovascular: Positive: Negative Musculoskeletal: Positive: Decreased ROM - let middle finger, Other: - left middle finger s/p injury Neurological: Positive: Negative Psychological: Positive: Negative Is Patient Immunocompromised?: No Physical Exam - Summary Physical Exam Summary: Vital Signs Reviewed: Yes General: Well developed well nourished female sitting in the examining table w/ o any apparent distress Eyes: Positive: Conjunctiva Clear - PERRLA, EOMI ENT: Positive: Normal ENT inspection, Hearing grossly normal, Pharynx normal, TMs normal Neck: Positive: Supple, Nontender, No Lymphadenopathy Respiratory: Positive: Chest non-tender, Lungs clear, Normal breath sounds, No respiratory distress Cardiovascular: Positive: RRR, No Murmur, Pulses Normal, Brisk Capillary Refill Abdomen Description: Positive: Nontender, No Organomegaly, Soft. Negative: CVA Tenderness (R), CVA Tenderness (L) Bowel Sounds: Positive: Present Musculoskeletal: Positive: Strength Intact, No Edema, LF Hand/Fingers: the L hand is without obvious asymmetry or deformity when compared to the R hand. mild bruising around ventral side of #3 phalanx. no involvement of the nail which is clear. No surface trauma, open wounds,bony deformity. Normal cascade of fingers. Normal flexion and extension of fingers, except for #3 phalanx due to pain. No focal fullness, throbbing pain, swelling of finger tip. Pulses and capillary refill WNL, positive reflexes and sensation intact Neurological Exam: Normal Psychological Exam: Normal Skin Exam: Normal Triage Information Reviewed: Yes Vital Signs: Initial Vital Signs Temp 98.6 F 01/06/19 16:30 Pulse 85 01/06/19 16:30 Resp 18 01/06/19 16:30 BP 105/69 01/06/19 16:30 Pulse Ox 99 01/06/19 16:30 Hand/Wrist Course/Dx - Course Course Of Treatment: 38 y/o female presents to the urgent care c/o left middle finger pain and bruise s/p injury when a larger log fell on top of her finger Saturday. Pt reports she was picking up smaller pieces, but accidentally the big one hit her left middle finger. Pt states she has a bruise in the ventral side of her distal finger. Her mother splinted her finger, but she has noticed pain has worsen w/ decrease ROM. She has taken Ibuprofen and Tramadol to alleviate symptoms. Pt w/ Hx of RA. Pain now is mild 2/10. She also has Hx of herpes labialis and she has a sore for the past 2 days in her right side of lower lip. Pt denies numbness or tingling sensation over her finger, fever, SOB, chest pain,abdominal pain, N/V/D. Hx obtained. Left #3rd digit X-ray ordered: impression: There was no fracture, dislocation, soft tissue swelling or FB noted as per radiologist. Probably a finger sprain. Pt's finger immobilized with her finger splint and body tape with the #4 digit. Pt advised RICE and continue taking Ibuprofen PO for pain. F/u with Orthopedic Dr Boo if not improvement of symptoms in 1 week. D/c instructions explained. Pt understood and agreed with plan of care. - Differential Dx/Diagnosis Differential Diagnosis/HQI/PQRI: Abrasion, Cellulitis, Contusion, Fracture, Sprain, Strain, Tendonitis Provider Diagnosis: Injury of left middle finger, Sprain of left middle finger, Herpes labialis Discharge - Sign-Out/Discharge Documenting (check all that apply): Patient Departure - D/C home All imaging exams completed and their final reports reviewed: Yes - Discharge Plan Condition: Stable Disposition: HOME Prescriptions: ValACYclovir (*) [Valtrex 1 GM(*)] 2 gm PO BID #4 tab Patient Education Materials: Oral Herpes Simplex Virus Infections (ED), Finger Sprain (ED) Referrals: Trinity Orellana MD [Primary Care Provider] - 1 Week Walter Boo MD [Medical Doctor] - 1 Week Additional Instructions: 1-Please continue taking Ibuprofen PO q6-8hrs after meals as directed to alleviate pain and swelling. 2-Please apply ice, keep your finger thumb immobilized with the splint. Avoid strenuous exercise, or too much flexion w/ your finger 3- Please f/u with Orthopedic Dr boo or your PCP in 1 week if not improvement of symptoms for further evaluation and treatment. 4-Please take Valtrex PO as directed to alleviate your herpes labialis - Billing Disposition and Condition Condition: STABLE Disposition: Home
[2019-01-06 19:04] VITALS: BP 110/79
== END 2019-01-06 19:00 | disposition home or self-care (01) ==
LOC: UCEAST 16:27
DX: S69.92XA Unspecified injury of left wrist, hand and finger(s), initial encounter (principal); S63.613A Unspecified sprain of left middle finger, initial encounter; W20.8XXA Other cause of strike by thrown, projected or falling object, initial encounter; Y93.89 Activity, other specified; Y92.9 Unspecified place or not applicable; B00.1 Herpesviral vesicular dermatitis
CPT/HCPCS: 73140; 99212; G0463

== ENCOUNTER 2019-06-18 15:24 | Emergency (ER) | payer BC ==
[2019-06-18 15:59] VITALS: BP 104/70
--- NOTE | 2019-06-18 16:29 | UC ---
Throat Pain/Nasal Ko HPI - HPI Summary HPI Summary: 38-year-old old woman comes in with a chief complaint of sinus pressure and chest congestion. Started about 3 days ago. Patient is on an immunosuppressant for rheumatoid arthritis and ankylosing spondylitis and is therefore potentially immunocompromised. She is green rhinorrhea she has frontal and maxillary sinus pressure with teeth pain. Also been having some chest tightness. No sputum production no wheezing. In August 2018 patient had similar symptoms although the chest infection symptoms worse and was treated successfully with Augmentin and Gustavo azithromycin. No fevers measured. Patient reports arthralgias. - History of Current Complaint Chief Complaint: UCRespiratory Stated Complaint: SINUS CONGESTION Time Seen by Provider: 06/18/19 16:12 Hx Last Menstrual Period: unk Pain Intensity: 3 - Allergies/Home Medications Allergies/Adverse Reactions: Allergies Allergy/AdvReac Type Severity Reaction Status Date / Time ceftazidime Allergy Severe Anaphylatic Verified 06/18/19 16:00 Shock ephedrine Allergy Severe Palpitation Verified 06/18/19 16:00 s metoclopramide [From Reglan] Allergy Severe Rash Verified 06/18/19 16:00 prochlorperazine Allergy Severe Anxiety Verified 06/18/19 16:00 [From Compazine] pseudoephedrine Allergy Severe Palpitation Verified 06/18/19 16:00 s Sulfa (Sulfonamide Allergy Severe Numbness Verified 06/18/19 16:00 Antibiotics) And Tingling tramadol [From Ultram] Allergy Severe Anxiety Verified 06/18/19 16:00 PMH/Surg Hx/FS Hx/Imm Hx Previously Healthy: Yes - RA, ankylosing spondylitis GI/ History: Gastroesophageal Reflux - Surgical History Surgical History: Yes Surgery Procedure, Year, and Place: Ovarian cyst removal, gallbladder removal, C -section endo, hernia repair 09/2018 - Family History Known Family History: Positive: Hypertension - Social History Alcohol Use: Rare Substance Use Type: None Smoking Status (MU): Never Smoked Tobacco Review of Systems All Other Systems Reviewed And Are Negative: Yes Constitutional: Positive: Other - SEE HPI Skin: Positive: Negative ENT: Positive: Sore Throat, Nasal Discharge, Sinus Congestion, Sinus Pain/ Tenderness Respiratory: Positive: Cough, Other - SEE HPI Cardiovascular: Positive: Other - SEE HPI Gastrointestinal: Positive: Negative Motor: Positive: Negative Neurovascular: Positive: Negative Musculoskeletal: Positive: Arthralgia Neurological: Positive: Negative Psychological: Positive: Negative Is Patient Immunocompromised?: No Physical Exam Triage Information Reviewed: Yes Appearance: No Pain Distress, Well-Nourished, Ill-Appearing - MILD Vital Signs: Initial Vital Signs Temp 97.7 F 06/18/19 15:55 Pulse 84 06/18/19 15:55 Resp 16 06/18/19 15:55 BP 104/70 06/18/19 15:55 Pulse Ox 100 06/18/19 15:55 Vital Signs Reviewed: Yes Eye Exam: Normal Eyes: Positive: Conjunctiva Clear ENT: Positive: Pharyngeal erythema, Nasal congestion, Nasal drainage, TMs normal Neck: Positive: Supple Respiratory: Positive: Lungs clear, Normal breath sounds, No respiratory distress Cardiovascular: Positive: RRR Musculoskeletal: Positive: Strength Intact, ROM Intact Neurological: Positive: Alert, Muscle Tone Normal Psychological: Positive: Normal Response To Family Skin Exam: Normal Throat Pain/Nasal Course/Dx - Course Course Of Treatment: Patient is on an immunosuppressant dictation for rheumatoid arthritis and ankylosing spondylitis. Therefore more concerned about the possibility of a bacterial infection. For sinusitis will treat with Augmentin. She does have symptoms of bronchitis and did not hear consolidation on examination today. In August 2018 patient had similar symptoms although her respiratory congestion was more prominent at that time because of her know compromised status treated with both Augmentin and azithromycin and she did improve. We discussed treatment with antibiotics and patient prefers to have both prescriptions at this time. - Differential Dx/Diagnosis Provider Diagnosis: Sinusitis, Bronchitis Discharge ED - Sign-Out/Discharge Documenting (check all that apply): Patient Departure All imaging exams completed and their final reports reviewed: No Studies - Discharge Plan Condition: Stable Disposition: HOME Prescriptions: Amoxicillin/Clavulanate TAB* [Augmentin TAB 875*] 875 mg PO BID #20 tab Azithromyxin BUDDY (NF) [Z-Buddy (Zithromax) 250 mg tabs #6] 2 tab PO .TODAY, THEN 1 DAILY #6 tab Patient Education Materials: Sinusitis (ED), Acute Bronchitis (ED) Referrals: Trinity Orellana MD [Primary Care Provider] - Additional Instructions: FOLLOW UP WITH YOUR DOCTOR IF NOT COMPLETELY IMPROVED. GET RECHECKED SOONER IF YOUR CONDITION WORSENS OR ANY QUESTIONS OR CONCERNS. - Billing Disposition and Condition Condition: STABLE Disposition: Home
== END 2019-06-18 16:48 | disposition home or self-care (01) ==
LOC: UCEAST 15:24
DX: J32.9 Chronic sinusitis, unspecified (principal); J40 Bronchitis, not specified as acute or chronic; K21.9 Gastro-esophageal reflux disease without esophagitis; Z88.2 Allergy status to sulfonamides
CPT/HCPCS: 99212; G0463

== ENCOUNTER 2019-07-07 18:03 | Emergency (ER) | payer BC | END 2019-07-07 19:15 | disposition left against medical advice (07) | LOC: UCEAST 18:03 | DX: Z53.21 Procedure and treatment not carried out due to patient leaving prior to being seen by health care provider (principal) ==

== ENCOUNTER 2019-07-08 12:07 | Emergency (ER) | payer BC ==
[2019-07-08 14:05] VITALS: BP 110/74
--- NOTE | 2019-07-08 14:29 | UC ---
Throat Pain/Nasal Ko HPI - HPI Summary HPI Summary: 38 yo female presents with cold symptoms. She tells me that 4 days ago she developed a sore throat, runny nose, and dry cough. Since that time she has had increasing sinus pain/pressure/congestion, productive cough with green sputum, and feels that she is wheezing at times. She has a hx of asthma and has an albuterol inhaler at home, but has not provided her much relief. She has been taking OTC cold medicine with mild improvement. She undergoes infusions for her RA and most recent infusion was on 07/03. Denies fever, difficulty breathing, chest pain, rash, n/v. She does not smoke. - History of Current Complaint Chief Complaint: UCGeneralIllness Stated Complaint: SORE THROAT Time Seen by Provider: 07/08/19 14:29 Hx Obtained From: Patient Hx Last Menstrual Period: IUD Onset/Duration: Gradual Onset Severity: Moderate Pain Intensity: 5 Pain Scale Used: 0-10 Numeric - Allergies/Home Medications Allergies/Adverse Reactions: Allergies Allergy/AdvReac Type Severity Reaction Status Date / Time ceftazidime Allergy Severe Anaphylatic Verified 07/08/19 13:55 Shock ephedrine Allergy Severe Palpitation Verified 07/08/19 13:55 s metoclopramide [From Reglan] Allergy Severe Rash Verified 07/08/19 13:55 prochlorperazine Allergy Severe Anxiety Verified 07/08/19 13:55 [From Compazine] pseudoephedrine Allergy Severe Palpitation Verified 07/08/19 13:55 s Sulfa (Sulfonamide Allergy Severe Numbness Verified 07/08/19 13:55 Antibiotics) And Tingling tramadol [From Ultram] Allergy Severe Anxiety Verified 07/08/19 13:55 PMH/Surg Hx/FS Hx/Imm Hx - Additional Past Medical History Additional PMH: Rheumatoid arthritis - Surgical History Surgical History: Yes Surgery Procedure, Year, and Place: Ovarian cyst removal, gallbladder removal, C -section endo, hernia repair 09/2018 - Family History Known Family History: Positive: Hypertension - Social History Lives: With Family Alcohol Use: Rare Substance Use Type: None Smoking Status (MU): Never Smoked Tobacco Review of Systems All Other Systems Reviewed And Are Negative: No Constitutional: Positive: Negative Skin: Positive: Negative Eyes: Positive: Negative ENT: Positive: Sore Throat, Nasal Discharge, Sinus Congestion, Sinus Pain/ Tenderness Respiratory: Positive: Shortness Of Breath, Cough Cardiovascular: Positive: Negative Gastrointestinal: Positive: Negative Neurovascular: Positive: Negative Neurological: Positive: Negative Psychological: Positive: Negative Physical Exam - Summary Physical Exam Summary: GENERAL: NAD. WDWN. No pain distress. SKIN: No rashes, sores, lesions, or open wounds. HEENT: Head: AT/NC Eyes: EOM intact. Conjunctiva clear without inflammation or discharge. Ears: Hearing grossly normal. TMs intact, no bulging, erythema, or edema. Nose: Nasal mucosa pink and moist. NTTP maxillary and frontal sinus. Throat: Posterior oropharynx without exudates, erythema, or tonsillar enlargement. Uvula midline. NECK: Supple. Nontender. No lymphadenopathy. CHEST: CTAB. No accessory muscle use. Breathing comfortably and in no distress. CV: RRR. Pulses intact. Cap refill <2seconds NEURO: Alert. PSYCH: Age appropriate behavior. Triage Information Reviewed: Yes Vital Signs: Initial Vital Signs Temp 98.1 F 07/08/19 13:58 Pulse 89 07/08/19 13:58 Resp 16 07/08/19 13:58 BP 110/74 07/08/19 13:58 Pulse Ox 99 07/08/19 13:58 Vital Signs Reviewed: Yes Throat Pain/Nasal Course/Dx - Course Course Of Treatment: In the clinic she had a duoneb treatment with great improvement of her cough. Reported that it is easier to take a deep breath. Suspect viral illness, but given her immunocompromised status will rx for antibiotics at this time. Also encouraged her to f/u with her PCP for a recheck and possible prescription for a nebulizer for home use. - Differential Dx/Diagnosis Provider Diagnosis: Bronchitis, Sinusitis Discharge ED - Sign-Out/Discharge Documenting (check all that apply): Patient Departure All imaging exams completed and their final reports reviewed: No Studies - Discharge Plan Condition: Stable Disposition: HOME Prescriptions: Amoxicillin/Clavulanate TAB* [Augmentin TAB 875*] 875 mg PO BID #14 tab Benzonatate CAP* [Tessalon 100 MG CAP*] 100 mg PO TID PRN #21 cap PRN Reason: Cough Codeine Phosphate/Guaifenesin [Guaifen-Codeine 100-10 mg/5 ml] 5 ml PO BEDTIME PRN #35 ml MDD 5mL PRN Reason: Cough Patient Education Materials: Acute Bronchitis (ED), Rhinosinusitis (ED) Forms: *Work Release Referrals: Trinity Orellana MD [Primary Care Provider] - Additional Instructions: If you develop a fever, shortness of breath, chest pain, new or worsening symptoms - please call your PCP or go to the ED immediately. I recommend that you contact your primary doctor about getting a nebulizer for at home use - Billing Disposition and Condition Condition: STABLE Disposition: Home
[2019-07-08] MEDS ORDERED: Albuterol/Ipratropium NEB.SOL* Albuterol 2.5 MG/Ipratropium 0.5 MG 3 ML INH ONE (14:37)
== END 2019-07-08 15:15 | disposition home or self-care (01) ==
LOC: UCEAST 12:07
DX: J02.9 Acute pharyngitis, unspecified (principal); J40 Bronchitis, not specified as acute or chronic; J32.9 Chronic sinusitis, unspecified; M06.9 Rheumatoid arthritis, unspecified; Z88.1 Allergy status to other antibiotic agents; Z88.8 Allergy status to other drugs, medicaments and biological substances; Z88.2 Allergy status to sulfonamides; Z88.5 Allergy status to narcotic agent
CPT/HCPCS: 87651; 99212; A9270-GY; G0463

== ENCOUNTER 2019-07-23 17:39 | Emergency (ER) | payer BC ==
--- OUTSIDE RECORDS SUMMARY | 2019-07-23 17:43 | XMS REPORT | Continuity of Care Document ---
:1980 External Reference #:[id number] Author Name CALVIN Addison (transmitted by agent of provider Norma Rudd) Address [address] [place] [address] Care Team Providers Name Role Phone Trinity Orellana M.D. - Internal Care Team Information Pipe Recovery Specialist [phone] Medicine Problems Active Problems Provider Date Allergic rhinitis Norma Rudd M.D. Onset: 12/12/2018 Difficulty breathing Norma Rudd M.D. Onset: 12/12/2018 Social History Type Date Description Comments Sex Unknown ETOH Use Denies alcohol use Tobacco Use Start: Unknown Patient has never smoked Recreational Drug Use Denies Drug Use Allergies, Adverse Reactions, Alerts Active Allergies Reaction Severity Comments Date Sulfa numbness and tingling 12/12/2018 Ultram withdrawl symptoms 12/12/2018 Compazine Anxiety 12/12/2018 Reglan Hives 12/12/2018 Psuedophedrine Chest discomfort 12/12/2018 Medications Active Medications SIG Qnty Indications Ordering Date Provider Nebulizer to be used with OneDevice R06.00 Apoorva 07/13/2019 Device albuterol for [place], [facility]C asthma r0600 Levalbuterol HCL use every 4 hours 30units R06.00 Apoorva 07/13/2019 as needed Jen [facility]EMENT[facility]-C 1.25mg/0.5ML Nebulizer Nebulizer to be used with 3units Apoorva 07/13/2019 Kit/Tubing/Mouthpiec albuterol sulfate [place], HAND CEMENTER-C e every 4-6 hours Kit as needed for cough, wheeze or shortness of breath Ondansetron Unknown 4mg Tablets Dispers Valacyclovir HCL Trinity Orellana, 1gm M.D. Tablets Zofran take 1 as needed Unknown 4mg Tablets for colitis every 8 hours Benadryl Allergy 1 by mouth at Unknown 25mg bedtime as needed Capsules for itchy skin/rash. Calcium Unknown Carbonate-Vitamin D [id number] Tablets Probiotic Unknown Acidophilus Capsules Orencia Unknown 50mg/0.4ML Soln Prefill Syringe Amoxicillin/Clavulan Unknown ate Potassium 875-125mg Tablets Immunizations Description No Information Available Vital Signs Date Vital Result Comment 12/12/2018 2:00pm Height 67 inches 5'7" Weight 106.00 lb Weight 48.082 kg Respiratory Rate 18 /min Heart Rate 77 /min O2 % BldC Oximetry 99 % BP Systolic 90 mmHg BP Diastolic 55 mmHg Fractional Exhaled Nitric Oxide 9 BMI (Body Mass Index) 16.6 kg/m2 Results Description No Information Available Procedures Description No Information Available Medical Devices Description No Information Available Encounters Type Date Location Provider Dx Diagnosis Office Visit 07/13/2019 [facility] Apoorva Li, R06.00 Dyspnea, unspecified 4:20p [facility] J30.9 Allergic rhinitis, unspecified J30.1 Allergic rhinitis due to pollen J30.89 Other allergic rhinitis J30.2 Other seasonal allergic rhinitis Assessments Date Code Description Provider 07/13/2019 R06.00 Dyspnea, unspecified JOSEFINA Addison-C 07/13/2019 J30.9 Allergic rhinitis, unspecified JOSEFINA Addison-C 07/13/2019 J30.1 Allergic rhinitis due to pollen JOSEFINA Addison-C 07/13/2019 J30.89 Other allergic rhinitis JOSEFINA Addison-C 07/13/2019 J30.2 Other seasonal allergic rhinitis JOSEFINA Addison-C Plan of Treatment Future Appointment(s):01/18/2020 4:00 pm - CALVIN Addison at [facility] Functional Status Description No Information Available Mental Status Description No Information Available Referrals Description No Information Available
[2019-07-23 17:55] VITALS: BP 100/70
--- NOTE | 2019-07-23 18:34 | UC ---
Throat Pain/Nasal Ko HPI - HPI Summary HPI Summary: Pt presents with c/o worsening cough, nasal congestion, sinus pressure, chest tightness, eye redness and green eye discharge. Pt states eye s feel like there is sand papaer in them and that she is beginning to have a sinus infection. Pt was treated last month with augmentin for sinus infection. - History of Current Complaint Chief Complaint: UCRespiratory Stated Complaint: CONGESTED Time Seen by Provider: 07/23/19 18:00 Hx Obtained From: Patient Hx Last Menstrual Period: iud ?: No Onset/Duration: Gradual Onset, Lasting Days, Still Present Severity: Moderate Pain Intensity: 0 Cough: Nonproductive Associated Signs & Symptoms: Positive: Wheezing, Sinus Discomfort - Epiglottits Risk Factors Epiglottis Risk Factors: Negative - Allergies/Home Medications Allergies/Adverse Reactions: Allergies Allergy/AdvReac Type Severity Reaction Status Date / Time ceftazidime Allergy Severe Anaphylatic Verified 07/23/19 17:51 Shock ephedrine Allergy Severe Palpitation Verified 07/23/19 17:51 s metoclopramide [From Reglan] Allergy Severe Rash Verified 07/23/19 17:51 prochlorperazine Allergy Severe Anxiety Verified 07/23/19 17:51 [From Compazine] pseudoephedrine Allergy Severe Palpitation Verified 07/23/19 17:51 s Sulfa (Sulfonamide Allergy Severe Numbness Verified 07/23/19 17:51 Antibiotics) And Tingling tramadol [From Ultram] Allergy Severe Anxiety Verified 07/23/19 17:51 Home Medications: Home Medications Levalbuterol 0.63MG/3ML NEB* [Xopenex 0.63MG/3ML NEB*] 0.63 mg INH Q2H PRN 07/23 [History Confirmed 07/23/19] PMH/Surg Hx/FS Hx/Imm Hx - Additional Past Medical History Additional PMH: rheumatoid arthritis Previously Healthy: Yes Respiratory History: Asthma - Surgical History Surgical History: Yes Surgery Procedure, Year, and Place: Ovarian cyst removal, gallbladder removal, C -section endo, hernia repair 09/2018 - Family History Known Family History: Positive: Hypertension - Social History Occupation: Employed Full-time Lives: With Family Alcohol Use: Rare Substance Use Type: None Smoking Status (MU): Never Smoked Tobacco Have You Smoked in the Last Year: No - Immunization History Vaccination Up to Date: Yes Review of Systems All Other Systems Reviewed And Are Negative: Yes Constitutional: Positive: Chills, Fatigue Skin: Positive: Negative Eyes: Positive: Negative ENT: Positive: Sinus Congestion, Sinus Pain/Tenderness Respiratory: Positive: Shortness Of Breath, Cough Cardiovascular: Positive: Negative Gastrointestinal: Positive: Negative Genitourinary: Positive: Negative Motor: Positive: Negative Neurovascular: Positive: Negative Musculoskeletal: Positive: Myalgia Neurological: Positive: Headache Psychological: Positive: Negative Is Patient Immunocompromised?: No Physical Exam Triage Information Reviewed: Yes Appearance: Ill-Appearing Vital Signs: Initial Vital Signs Temp 98.6 F 07/23/19 17:53 Pulse 100 07/23/19 17:53 Resp 18 07/23/19 17:53 BP 100/70 07/23/19 17:53 Pulse Ox 100 07/23/19 17:53 Vital Signs Reviewed: Yes Eye Exam: Normal ENT: Positive: Nasal congestion, Sinus tenderness Dental Exam: Normal Neck exam: Normal Respiratory Exam: Normal Respiratory: Positive: Normal breath sounds Cardiovascular Exam: Normal Musculoskeletal Exam: Normal Neurological Exam: Normal Psychological Exam: Normal Skin Exam: Normal Throat Pain/Nasal Course/Dx - Differential Dx/Diagnosis Differential Diagnosis/HQI/PQRI: Sinusitis, URI Provider Diagnosis: Conjunctivitis, Sinusitis Discharge ED - Sign-Out/Discharge Documenting (check all that apply): Patient Departure All imaging exams completed and their final reports reviewed: No Studies - Discharge Plan Condition: Stable Disposition: HOME Prescriptions: Azithromycin TAB* [Zithromax TAB (Z-PORTER) 250 mg #6 tabs] 2 tab PO .TODAY, THEN 1 DAILY #1 porter Polymyx/Trimethoprim OPTH* [Polytrim OPHTH*] 2 drop BOTH EYES Q6H 7 Days #1 btl Patient Education Materials: Sinusitis (ED), Conjunctivitis (ED) Forms: *Work Release Referrals: Trinity Orellana MD [Primary Care Provider] - If Needed - Billing Disposition and Condition Condition: STABLE Disposition: Home
== END 2019-07-23 18:45 | disposition home or self-care (01) ==
LOC: UCEAST 17:39
DX: H10.33 Unspecified acute conjunctivitis, bilateral (principal); J32.9 Chronic sinusitis, unspecified; J45.909 Unspecified asthma, uncomplicated; M06.9 Rheumatoid arthritis, unspecified; Z88.5 Allergy status to narcotic agent; Z88.2 Allergy status to sulfonamides; Z88.8 Allergy status to other drugs, medicaments and biological substances
CPT/HCPCS: 99212; G0463

== ENCOUNTER 2019-11-21 09:07 | Emergency (ER) | payer BC ==
[2019-11-21 09:20] VITALS: BP 99/66
[2019-11-21 09:36] LABS: Influenza A Molecular POSITIVE (Negative)
--- NOTE | 2019-11-21 09:52 | UC ---
FLU HPI - HPI Summary HPI Summary: Awoke feeling sick 48h ago, fever, chills, ST, swollen glands, took Tylenol but no better today did not have flu vacc this year - History of Current Complaint Chief Complaint: UCRespiratory Stated Complaint: FEVER CHILLS [place] GLANDS Time Seen by Provider: 11/21/19 09:11 Hx Obtained From: Patient Hx Last Menstrual Period: IUD ?: No Onset/Duration: Sudden Onset Severity Currently: Mild Severity Initially: Mild Pain Intensity: 1 Associated Signs & Symptoms: Positive: Fever, Sore Throat, Nasal Congestion Related Hx: Possible Flu/Infectious Exposure - Allergy/Home Medications Allergies/Adverse Reactions: Allergies Allergy/AdvReac Type Severity Reaction Status Date / Time ceftazidime Allergy Severe Anaphylatic Verified 11/21/19 09:20 Shock ephedrine Allergy Severe Palpitation Verified 11/21/19 09:20 s metoclopramide [From Reglan] Allergy Severe Rash Verified 11/21/19 09:20 prochlorperazine Allergy Severe Anxiety Verified 11/21/19 09:20 [From Compazine] pseudoephedrine Allergy Severe Palpitation Verified 11/21/19 09:20 s Sulfa (Sulfonamide Allergy Severe Numbness Verified 11/21/19 09:20 Antibiotics) And Tingling tramadol [From Ultra] Allergy Severe Anxiety Verified 11/21/19 09:20 Home Medications: Home Medications Acetaminophen TAB* [Tylenol TAB*] 650 mg PO Q6H PRN 11/21/19 [History Confirmed 11/21/19] PMH/Surg Hx/FS Hx/Imm Hx Previously Healthy: Yes - Surgical History Surgical History: Yes Surgery Procedure, Year, and Place: Ovarian cyst removal, gallbladder removal, C -section endo, hernia repair 09/2018 - Family History Known Family History: Positive: Hypertension - Social History 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 Lives: With Family Alcohol Use: Rare Substance Use Type: None Smoking Status (MU): Never Smoked Tobacco Have You Smoked in the Last Year: No - Immunization History Most Recent Influenza Vaccination: 2018 Vaccination Up to Date: Yes Review of Systems All Other Systems Reviewed And Are Negative: Yes Constitutional: Positive: Fever, Chills, Fatigue Skin: Positive: Negative Eyes: Positive: Negative ENT: Positive: Sore Throat, Sinus Congestion Respiratory: Positive: Negative Cardiovascular: Positive: Negative Gastrointestinal: Positive: Negative Neurological/Mental Status: Negative: Headache Psychological: Positive: Negative, Other - states going thru divorce, has order of protection, good support system. feels safe at this time Is Patient Immunocompromised?: Yes - RA Physical Exam Triage Information Reviewed: Yes Appearance: Well-Appearing, No Pain Distress, Well-Nourished Vital Signs: Initial Vital Signs Temp 98.7 F 11/21/19 09:15 Pulse 89 11/21/19 09:15 Resp 16 11/21/19 09:15 BP 99/66 11/21/19 09:15 Pulse Ox 99 11/21/19 09:15 Vital Signs Reviewed: Yes Eye Exam: Normal Eyes: Positive: Conjunctiva Clear ENT: Positive: Pharynx normal, Nasal congestion Neck exam: Normal Neck: Positive: Supple Respiratory Exam: Normal Respiratory: Positive: Lungs clear Cardiovascular Exam: Normal Cardiovascular: Positive: RRR Neurological Exam: Normal Neurological: Positive: Alert Psychological Exam: Normal Skin Exam: Normal Skin: Negative: Rashes Flu Course/Dx - Differential Dx/Diagnosis Differential Diagnosis/HQI/PQRI: Influenza, Upper Respiratory Infection Provider Diagnosis: Influenza A Discharge ED - Sign-Out/Discharge Documenting (check all that apply): Patient Departure All imaging exams completed and their final reports reviewed: No Studies - Discharge Plan Condition: Good Disposition: HOME Prescriptions: Oseltamivir CAP* [Tamiflu CAP*] 75 mg PO BID #10 Patient Education Materials: Influenza (DC) Referrals: Trinity Orellana MD [Primary Care Provider] - 3 Days (if not improving) Additional Instructions: drink plenty of fluids use Tylenol as directed for fever and pain start Tamiflu today and take as directed - Billing Disposition and Condition Condition: GOOD Disposition: Home
== END 2019-11-21 10:00 | disposition home or self-care (01) ==
LOC: UCEAST 09:07
DX: J10.1 Influenza due to other identified influenza virus with other respiratory manifestations (principal); Z88.1 Allergy status to other antibiotic agents; Z88.2 Allergy status to sulfonamides; Z88.5 Allergy status to narcotic agent; Z88.8 Allergy status to other drugs, medicaments and biological substances
CPT/HCPCS: 99212; G0463

== ENCOUNTER 2019-11-24 12:36 | Emergency (ER) | payer BC ==
[2019-11-24 13:49] VITALS: BP 97/69
--- NOTE | 2019-11-24 14:00 | UC ---
Throat Pain/Nasal Ko HPI - HPI Summary HPI Summary: 39 yo female presents with sinus symptoms. She tells me that she was recently dx 'd with the flu and has been feeling better in regards to this. Over the last 2- 3 days has had sinus pain/pressure/congestion with green nasal discharge. She undergoes infusions for RA and and is scheduled for one this saturday. She is concerned that she has developed a sinus infection as she is immunocompromised and gets infections easily. Denies fever, chills, sore throat, cough. - History of Current Complaint Chief Complaint: UCGeneralIllness Stated Complaint: SINUS ISSUE Time Seen by Provider: 11/24/19 13:48 Hx Last Menstrual Period: IUD Severity: Mild Pain Intensity: 2 Pain Scale Used: 0-10 Numeric - Allergies/Home Medications Allergies/Adverse Reactions: Allergies Allergy/AdvReac Type Severity Reaction Status Date / Time ceftazidime Allergy Severe Anaphylatic Verified 11/21/19 09:20 Shock ephedrine Allergy Severe Palpitation Verified 11/21/19 09:20 s metoclopramide [From Reglan] Allergy Severe Rash Verified 11/21/19 09:20 prochlorperazine Allergy Severe Anxiety Verified 11/21/19 09:20 [From Compazine] pseudoephedrine Allergy Severe Palpitation Verified 11/21/19 09:20 s Sulfa (Sulfonamide Allergy Severe Numbness Verified 11/21/19 09:20 Antibiotics) And Tingling tramadol [From Ultram] Allergy Severe Anxiety Verified 11/21/19 09:20 PMH/Surg Hx/FS Hx/Imm Hx - Additional Past Medical History Additional PMH: RA Respiratory History: Asthma - Surgical History Surgical History: Yes Surgery Procedure, Year, and Place: Ovarian cyst removal, gallbladder removal, C -section endo, hernia repair 09/2018 - Family History Known Family History: Positive: Hypertension - Social History Lives: With Family Alcohol Use: Rare Substance Use Type: None Smoking Status (MU): Never Smoked Tobacco Have You Smoked in the Last Year: No - Immunization History Most Recent Influenza Vaccination: 2018 Vaccination Up to Date: Yes Review of Systems All Other Systems Reviewed And Are Negative: No Constitutional: Positive: Negative Skin: Positive: Negative Eyes: Positive: Negative ENT: Positive: Nasal Discharge, Sinus Congestion, Sinus Pain/Tenderness Respiratory: Positive: Negative Cardiovascular: Positive: Negative Gastrointestinal: Positive: Negative Neurovascular: Positive: Negative Neurological/Mental Status: Positive: Negative Psychological: Positive: Negative Physical Exam - Summary Physical Exam Summary: GENERAL: NAD. WDWN. No pain distress. SKIN: No rashes, sores, lesions, or open wounds. HEENT: Head: AT/NC Eyes: EOM intact. Conjunctiva clear without inflammation or discharge. Ears: Hearing grossly normal. TMs intact, no bulging, erythema, or edema. Nose: Nasal mucosa mildly swollen and erythematous with yellow discharge. TTP maxillary and frontal sinus. Positive post nasal drip Throat: Posterior oropharynx without exudates, erythema, or tonsillar enlargement. Uvula midline. NECK: Supple. Nontender. No lymphadenopathy. CHEST: CTAB. No r/r/w. No accessory muscle use. Breathing comfortably and in no distress. CV: RRR. Pulses intact. NEURO: Alert. PSYCH: Age appropriate behavior. Triage Information Reviewed: Yes Vital Signs: Initial Vital Signs Temp 99.4 F 11/24/19 13:45 Pulse 82 11/24/19 13:45 Resp 18 11/24/19 13:45 BP 97/69 11/24/19 13:45 Pulse Ox 100 11/24/19 13:45 Ketorolac TAB * [Toradol TAB *] 10 mg PO SEE INSTRUCTIONS PRN 06/12/18 [History Confirmed 11/24/19] Abatacept [Orencia] 125 mg SC SEE INSTRUCTIONS 07/15/18 [History Confirmed 11/24] Calcium Carbonate/Vitamin D3 [Calcium 500 mg Chewable Tablet] 1,250 mg PO DAILY 10/22/18 [History Confirmed 11/24/19] L.acidoph,Paracasei, B.lactis [Probiotic] 1 cap PO DAILY 10/22/18 [History Confirmed 11/24/19] Multivitamin [Multivitamins] 1 cap PO DAILY 10/22/18 [History Confirmed 11/24/19 ] Levalbuterol 0.63MG/3ML NEB* [Xopenex 0.63MG/3ML NEB*] 0.63 mg INH Q2H PRN 07/23 [History Confirmed 11/24/19] Acetaminophen TAB* [Tylenol TAB*] 650 mg PO Q6H PRN 11/21/19 [History Confirmed 11/24/19] Azithromycin TAB* [Zithromax TAB (Z-PORTER) 250 mg #6 tabs] 2 tab PO .TODAY, THEN 1 DAILY #1 porter 11/24/19 [Rx] Vital Signs Reviewed: Yes Throat Pain/Nasal Course/Dx - Course Course Of Treatment: Sinusitis. - Differential Dx/Diagnosis Provider Diagnosis: Sinusitis Discharge ED - Sign-Out/Discharge Documenting (check all that apply): Patient Departure All imaging exams completed and their final reports reviewed: No Studies - Discharge Plan Condition: Stable Disposition: HOME Prescriptions: Azithromycin TAB* [Zithromax TAB (Z-PORTER) 250 mg #6 tabs] 2 tab PO .TODAY, THEN 1 DAILY #1 porter Patient Education Materials: Sinusitis (ED) Referrals: Trinity Orellana MD [Primary Care Provider] - Additional Instructions: If you develop a fever, shortness of breath, chest pain, new or worsening symptoms - please call your PCP or go to the ED immediately. - Billing Disposition and Condition Condition: STABLE Disposition: Home
== END 2019-11-24 14:04 | disposition home or self-care (01) ==
LOC: UCEAST 12:36
DX: J32.9 Chronic sinusitis, unspecified (principal); J45.909 Unspecified asthma, uncomplicated; Z88.1 Allergy status to other antibiotic agents; Z88.8 Allergy status to other drugs, medicaments and biological substances; Z88.2 Allergy status to sulfonamides; Z88.5 Allergy status to narcotic agent
CPT/HCPCS: 99212; G0463

== ENCOUNTER 2019-12-14 09:55 | Emergency (ER) | payer BC ==
[2019-12-14 11:13] VITALS: BP 112/72
[2019-12-14 11:43] LABS: Influenza A Molecular Negative (Negative); Influenza B Molecular Negative (Negative)
--- NOTE | 2019-12-14 11:44 | UC ---
FLU HPI - HPI Summary HPI Summary: Fever, sinus headache, fatigue, started yesterday. - History of Current Complaint Chief Complaint: UCRespiratory Stated Complaint: FEVER, SORE THROAT, RESIRATORY Time Seen by Provider: 12/14/19 11:25 Hx Obtained From: Patient Hx Last Menstrual Period: IUD ?: No Onset/Duration: Sudden Onset Pain Intensity: 3 - Allergy/Home Medications Allergies/Adverse Reactions: Allergies Allergy/AdvReac Type Severity Reaction Status Date / Time ceftazidime Allergy Severe Anaphylatic Verified 12/14/19 11:10 Shock ephedrine Allergy Severe Palpitation Verified 12/14/19 11:10 s metoclopramide [From Reglan] Allergy Severe Rash Verified 12/14/19 11:10 prochlorperazine Allergy Severe Anxiety Verified 12/14/19 11:10 [From Compazine] pseudoephedrine Allergy Severe Palpitation Verified 12/14/19 11:10 s Sulfa (Sulfonamide Allergy Severe Numbness Verified 12/14/19 11:10 Antibiotics) And Tingling tramadol [From Ultram] Allergy Severe Anxiety Verified 12/14/19 11:10 Home Medications: Home Medications Ketorolac TAB * [Toradol TAB *] 10 mg PO SEE INSTRUCTIONS PRN 06/12/18 [History Confirmed 12/14/19] Abatacept [Orencia] 125 mg SC SEE INSTRUCTIONS 07/15/18 [History Confirmed 12/13] Calcium Carbonate/Vitamin D3 [Calcium 500 mg Chewable Tablet] 1,250 mg PO DAILY 10/22/18 [History Confirmed 12/14/19] L.acidoph,Paracasei, B.lactis [Probiotic] 1 cap PO DAILY 10/22/18 [History Confirmed 12/14/19] Multivitamin [Multivitamins] 1 cap PO DAILY 10/22/18 [History Confirmed 12/14/19 ] Levalbuterol 0.63MG/3ML NEB* [Xopenex 0.63MG/3ML NEB*] 0.63 mg INH Q2H PRN 07/23 [History Confirmed 12/14/19] Acetaminophen TAB* [Tylenol TAB*] 650 mg PO Q6H PRN 11/21/19 [History Confirmed 12/14/19] PMH/Surg Hx/FS Hx/Imm Hx - Surgical History Surgical History: Yes Surgery Procedure, Year, and Place: Ovarian cyst removal, gallbladder removal, C -section endo, hernia repair 09/2018 - Family History Known Family History: Positive: Hypertension - Social History Alcohol Use: Rare Substance Use Type: None Smoking Status (MU): Never Smoked Tobacco Have You Smoked in the Last Year: No - Immunization History Most Recent Influenza Vaccination: 2017 Vaccination Up to Date: Yes Physical Exam Vital Signs: Initial Vital Signs Temp 98.9 F 12/14/19 11:07 Pulse 81 12/14/19 11:07 Resp 16 12/14/19 11:07 BP 112/72 12/14/19 11:07 Pulse Ox 99 12/14/19 11:07 Discharge ED - Discharge Plan Referrals: Trinity Orellana MD [Primary Care Provider] -
== END 2019-12-14 12:12 | disposition home or self-care (01) ==
LOC: UCEAST 09:55
DX: R50.9 Fever, unspecified (principal); R51 Headache; R53.83 Other fatigue; J02.9 Acute pharyngitis, unspecified; Z97.5 Presence of (intrauterine) contraceptive device; Z88.2 Allergy status to sulfonamides; Z88.8 Allergy status to other drugs, medicaments and biological substances; Z88.5 Allergy status to narcotic agent
CPT/HCPCS: 99212; G0463